=== PATIENT | male | born 1955 | race Hispanic/Latino ===

== ENCOUNTER 2018-11-02 11:42 | Observation (INO) | payer OTHER ==
[2018-11-02] MEDS ORDERED: D50W 25 GM/50 ML SYRINGE IV ONE ×2 (12:01→14:19)
--- NOTE | 2018-11-02 12:21 | RAD REPORT ---
EXAM DESCRIPTION: RAD - Chest Single View - 11/02/2018 12:09 pm CLINICAL HISTORY: Syncope, shortness of breath, dialysis patient COMPARISON: None. TECHNIQUE: AP portable chest image was obtained 1207 hours . FINDINGS: No pulmonary edema. No mass, infiltrate or acute lung parenchymal process. Failure and vol ume overload are not suspected. Heart size is upper normal. No acute vascular engorgement. Diaphragma tic eventration noted on the right. No measurable pleural effusion and no pneumothorax. No acute bony abnormality seen. No acute aortic findings suspected. IMPRESSION: No acute cardiopulmonary process.
[2018-11-02 12:22] LABS: Absolute Lymphocytes (CBC) 0.8 K/uL (0.7-4.9); Absolute Monocytes 0.6 K/uL (0.1-1.3); Absolute Neutrophil 6.6 K/uL (1.8-8.0); Basophils % 1.3 % (0-1.3); Eosinophils % 5.4 % (0-4.4); Hematocrit 37.3 % (39.6-49.0); Lymphocytes % 9.4 % (15.3-44.8); MPV 7.5 fL (7.6-11.3); Protime INR 0.98; RBC Red Blood Cell Count 4.08 M/uL (4.33-5.43)
[2018-11-02 12:51] LABS: ALT/SGPT 64 U/L (12-78); AST/SGOT 37 U/L (15-37); Albumin 4.2 g/dL (3.4-5.0); Alkaline Phosphatase 105 U/L (45-117); BUN Blood Urea Nitrogen 103 mg/dL (7-18); Bicarbonate 20 mmol/L (21-32); Bilirubin Direct 0.1 mg/dL (0-0.2); Bilirubin Total 0.5 mg/dL (0.2-1.0); Glucose Level 198 mg/dL (74-106); Magnesium 2.4 mg/dL (1.8-2.4); NT PRO-BNP 7551 pg/mL (<125); Protein, Total 7.9 g/dL (6.4-8.2); Sodium Level 133 mmol/L (136-145); Troponin (Emerg Dept Use Only) < 0.02 ng/mL (0.0-0.045)
[2018-11-02 12:58] LABS: Potassium 6.8 mmol/L (3.5-5.1)
[2018-11-02] MEDS ORDERED: ALBUTEROL 2.5 MG/3 ML NEB SOL ONE (14:10)
[2018-11-02] MEDS ORDERED: INSULIN -REGULAR HUMAN 50 UNIT/0.5 ML ML ONE (14:10)
[2018-11-02] MEDS ORDERED: SOD POLYSTYREN SUL 15 GM/60 ML UCUP ONE (14:11)
[2018-11-02] MEDS ORDERED: CALCIUM GLUCONATE 1gm/100 ML NS (4.65 mEq/100mL) IV ONE ×2 (14:15)
--- NOTE | 2018-11-02 16:45 | ER ---
Nurse's Notes [facility] Name: Surjit Cleary Age: 63 yrs Sex: Male : 1955 Arrival Date: 11/02/2018 Time: 11:44 Bed 7 Private MD: Diagnosis: Syncope and collapse;Hyperkalemia;Weakness Presentation: 11/02 11:44 Presenting complaint: EMS states: Family called because they thought he had a seizure, jl7 pt did not appear postictal upon arrival. Pt reports "I stood up and was weak and passed out." Pt is a dialysis pt, T/T/S, due for dialysis today at 1200. Transition of care: patient was not received from another setting of care. Onset of symptoms was November 02, 2018. Risk Assessment: Do you want to hurt yourself or someone else? Patient reports no desire to harm self or others. Initial Sepsis Screen: Does the patient meet any 2 criteria? No. Patient's initial sepsis screen is negative. Does the patient have a suspected source of infection? No. Patient's initial sepsis screen is negative. Care prior to arrival: Medication(s) given: Glucagon, IV initiated. 20 GA, in the left antecubital area, Glucose check: 50. 11:44 Method Of Arrival: EMS: [facility] 11:44 Acuity: CHRIS 3 jl7 Triage Assessment: 11:45 General: Appears in no apparent distress. uncomfortable, Behavior is calm, cooperative, jl7 appropriate for age. Pain: Denies pain. EENT: No signs and/or symptoms were reported regarding the EENT system. Neuro: Level of Consciousness is awake, alert, obeys commands, Oriented to person, place, time, situation, Reports "I got weak and passed out." Denies current weakness. Cardiovascular: Denies chest pain, Heart tones S1 S2 present Patient's skin is warm and dry. Rhythm is sinus bradycardia. Respiratory: Airway is patent Respiratory effort is even, unlabored, Respiratory pattern is regular, symmetrical, Breath sounds are clear bilaterally. Denies shortness of breath. GI: No signs and/or symptoms were reported involving the gastrointestinal system. : No signs and/or symptoms were reported regarding the genitourinary system. Derm: Skin is pink, warm \\T\\ dry. Musculoskeletal: No signs and/or symptoms reported regarding the musculoskeletal system. Historical: - Allergies: 12:30 No Known Allergies; jl7 - Home Meds: 12:30 Nephlex [Active]; Tylenol #3 Oral [Active]; Vitamin D Oral [Active]; levetiracetam 500 jl7 mg oral tab [Active]; Humalog 100 unit/mL Sub-Q crtg [Active]; Levemir 100 unit/mL subcutaneous soln [Active]; hydralazine 50 mg Oral tab [Active]; Diovan 160 mg Oral tab [Active]; gabapentin 100 mg oral cap [Active]; labetalol 200 mg Oral tab [Active]; pantoprazole 40 mg oral TbEC [Active]; amlodipine 10 mg tab [Active]; aspirin 81 mg Oral chew [Active]; atorvastatin 40 mg oral tab [Active]; - PMHx: 12:30 GERD; Hypertension; Dialysis; Hyperlipidemia; jl7 - Immunization history:: Adult Immunizations unknown. - Social history:: Smoking status: Patient/guardian denies using tobacco. - Ebola Screening: : No symptoms or risks identified at this time. Screenin:00 Abuse screen: Denies threats or abuse. Denies injuries from another. Nutritional jl7 screening: No deficits noted. Tuberculosis screening: No symptoms or risk factors identified. Fall Risk IV access (20 points). Total Bolanos Fall Scale indicates No Risk (0-24 pts). Assessment: 12:00 General: See triage assessment. jl7 13:00 Reassessment: Patient appears in no apparent distress at this time. Patient and/or jl7 family updated on plan of care and expected duration. Pain level reassessed. Patient is alert, oriented x 3, equal unlabored respirations, skin warm/dry/pink. 14:00 Reassessment: Patient appears in no apparent distress at this time. Patient and/or jl7 family updated on plan of care and expected duration. Pain level reassessed. Patient is alert, oriented x 3, equal unlabored respirations, skin warm/dry/pink. Patient denies pain at this time. Patient states feeling better. Patient states symptoms have improved. 15:00 Reassessment: Pt laying in bed with eyes closed, respirations even and unlabored, no jl7 signs of distress noted at this time. 16:00 Reassessment: Patient appears in no apparent distress at this time. Patient and/or jl7 family updated on plan of care and expected duration. Pain level reassessed. Patient is alert, oriented x 3, equal unlabored respirations, skin warm/dry/pink. Pt's family at bedside, pt denies pain. 17:00 Reassessment: Patient appears in no apparent distress at this time. Patient and/or jl7 family updated on plan of care and expected duration. Pain level reassessed. Patient is alert, oriented x 3, equal unlabored respirations, skin warm/dry/pink. Diet tray delivered. 18:00 Reassessment: Patient appears in no apparent distress at this time. No changes from jl7 previously documented assessment. Patient and/or family updated on plan of care and expected duration. Pain level reassessed. Patient is alert, oriented x 3, equal unlabored respirations, skin warm/dry/pink. Patient denies pain at this time. Vital Signs: 11:45 BP 130 / 76; Pulse 53; Resp 16; Pulse Ox 97% ; Weight 73.48 kg; Pain 0/10; jl7 13:52 BP 116 / 68; Pulse 57; Resp 16 S; Pulse Ox 97% on R/A; jl7 15:03 BP 95 / 49; Pulse 56; Resp 14 S; Pulse Ox 97% on R/A; jl7 15:14 BP 99 / 61; Pulse 63; Resp 14 S; Pulse Ox 99% on R/A; Pain 0/10; jl7 16:15 BP 107 / 62; Pulse 59; Resp 16 S; Pulse Ox 100% on R/A; jl7 17:15 BP 108 / 63; Pulse 62; Resp 16 S; Pulse Ox 97% on R/A; jl7 18:15 BP 106 / 63; Pulse 65; Resp 16 S; Pulse Ox 100% on R/A; jl7 ED Course: 11:44 Patient arrived in ED. jl7 11:46 Sb Willard MD is Attending Physician. kdr 11:47 Triage completed. jl7 11:49 EKG done, by technical account executive. reviewed by Sb Willard MD. sm3 11:55 Arm band placed on right wrist. jl7 12:00 Maintain EMS IV. Dressing intact. Good blood return noted. Site clean \\T\\ dry. Gauge \\T\\ jl 7 site: 20 left AC. 12:00 Patient has correct armband on for positive identification. Placed in gown. Bed in low jl7 position. Call light in reach. Side rails up X 1. engine monitor on. Pulse ox on. NIBP on. Warm blanket given. 12:07 X-ray completed. Portable x-ray completed in exam room. Patient tolerated procedure jb2 well. 12:08 XRAY Chest (1 view) In Process Unspecified. EDMS 12:21 Belle Carrero RN is Primary Nurse. jl7 16:44 Irwin Chadwick MD is Hospitalizing Provider. kdr 19:10 No provider procedures requiring assistance completed. Patient admitted, IV remains in jl7 place. intact, No redness/swelling at site. Administered Medications: 11:53 Drug: D50W 50 ml Route: IVP; Site: left antecubital; jl7 12:45 Follow up: Response: No adverse reaction; Blood sugar is elevated jl7 14:15 Drug: Albuterol 2.5 mg Route: Inhalation; jl7 14:17 Drug: D50W 50 ml Route: IVP; Site: left antecubital; jl7 15:00 Follow up: Response: No adverse reaction jl7 14:17 Drug: Kayexalate 45 grams Route: PO; jl7 15:00 Follow up: Response: No adverse reaction jl7 14:20 Drug: Insulin Regular Human 10 units {Co-Signature: aj1 (Ching Perkins RN).} Route: jl7 IVP; Site: left antecubital; 15:00 Follow up: Response: No adverse reaction; Blood sugar is lowered jl7 14:35 Drug: Albuterol 2.5 mg Route: Inhalation; jl7 14:55 Drug: Albuterol 2.5 mg Route: Inhalation; jl7 16:00 Follow up: Response: No adverse reaction jl7 15:05 Drug: Calcium Gluconate 1 grams Route: IVPB; Infused Over: 60 mins; Site: left jl7 antecubital; 16:05 Follow up: Response: No adverse reaction; IV Status: Completed infusion jl7 Point of Care Testing: Blood Glucose: 11:55 Blood Glucose: 44 mg/dL; jl7 15:03 Blood Glucose: 130 mg/dL; jl7 Ranges: Outcome: 16:45 Decision to Hospitalize by Provider. kdr 19:10 Admitted to accompanied by nurse, via wheelchair, with chart, Report called to jl7 Dialysis Nurse will transport pt to room 208 after dialysis is done 19:10 Condition: stable 19:10 Discharge instructions given to patient, Instructed on the need for admit, Demonstrated understanding of instructions. 19:12 Patient left the ED. cassy Signatures: Dispatcher [employer] EDMS Sb Willard MD MD kdr Buechter, Jesse jb2 Belle Carrero RN RN jl7 Nancy Shah 3 Ching Perkins RN aj1 Corrections: (The following items were deleted from the chart) 16:39 15:14 BP 99 / 61; Pulse 23bpm; Resp 14bpm; Spontaneous; Pulse Ox 99% RA; Pain 0/10; cassy madera
--- NOTE | 2018-11-02 16:45 | EDPHYS ---
Physician Documentation [facility] Name: Surjit Cleary Age: 63 yrs Sex: Male : 1955 Arrival Date: 11/02/2018 Time: 11:44 Bed 7 Private MD: ED Physician Sb Willard HPI: 11/02 16:39 This 63 yrs old Male presents to ER via EMS with complaints of Syncope. kdr 16:39 The patient has experienced near-syncope, almost passed out, felt faint, felt generally kdr weak. Onset: The symptoms/episode began/occurred just prior to arrival. Duration: This was a single episode, that lasted an unknown period of time. Context: the episode(s) was witnessed, by family, occurred at home, occurred while the patient was standing, Just prior to the episode the patient experienced weakness. Associated injury: The patient did not suffer any apparent associated injury. Associated signs and symptoms: Pertinent positives: weakness. Current symptoms: slightly weak. The patient has experienced similar episodes in the past, multiple times, with the last episode occurring last month, Has had four prior episodes. The patient has not recently seen a physician. Historical: - Allergies: 12:30 No Known Allergies; jl7 - Home Meds: 12:30 Nephlex [Active]; Tylenol #3 Oral [Active]; Vitamin D Oral [Active]; levetiracetam 500 jl7 mg oral tab [Active]; Humalog 100 unit/mL Sub-Q crtg [Active]; Levemir 100 unit/mL subcutaneous soln [Active]; hydralazine 50 mg Oral tab [Active]; Diovan 160 mg Oral tab [Active]; gabapentin 100 mg oral cap [Active]; labetalol 200 mg Oral tab [Active]; pantoprazole 40 mg oral TbEC [Active]; amlodipine 10 mg tab [Active]; aspirin 81 mg Oral chew [Active]; atorvastatin 40 mg oral tab [Active]; - PMHx: 12:30 GERD; Hypertension; Dialysis; Hyperlipidemia; jl7 - Immunization history:: Adult Immunizations unknown. - Social history:: Smoking status: Patient/guardian denies using tobacco. - Ebola Screening: : No symptoms or risks identified at this time. ROS: 16:39 Constitutional: Negative for fever, chills, and weight loss, Eyes: Negative for injury, kdr pain, redness, and discharge, ENT: Negative for injury, pain, and discharge, Neck: Negative for injury, pain, and swelling, Cardiovascular: Negative for chest pain, palpitations, and edema, Respiratory: Negative for shortness of breath, cough, wheezing, and pleuritic chest pain, Abdomen/GI: Negative for abdominal pain, nausea, vomiting, diarrhea, and constipation, Back: Negative for injury and pain, : Negative for injury, bleeding, discharge, and swelling, MS/Extremity: Negative for injury and deformity, Skin: Negative for injury, rash, and discoloration, Psych: Negative for depression, anxiety, suicide ideation, homicidal ideation, and hallucinations, Allergy/Immunology: Negative for hives, rash, and allergies, Endocrine: Negative for neck swelling, polydipsia, polyuria, polyphagia, and marked weight changes, Hematologic/Lymphatic: Negative for swollen nodes, abnormal bleeding, and unusual bruising. 16:39 Neuro: Positive for headache, loss of consciousness, near syncope, slight, Negative for altered mental status, numbness, seizure activity, tingling, tremor, visual changes. Exam: 12:32 ECG was reviewed by the Attending Physician. kdr 16:39 Constitutional: This is a well developed, well nourished patient who is awake, alert, kdr and in no acute distress. Head/Face: Normocephalic, atraumatic. ENT: Nares patent. No nasal discharge, no septal abnormalities noted. Tympanic membranes are normal and external auditory canals are clear. Oropharynx with no redness, swelling, or masses, exudates, or evidence of obstruction, uvula midline. Mucous membranes moist. Neck: Trachea midline, no thyromegaly or masses palpated, and no cervical lymphadenopathy. Supple, full range of motion without nuchal rigidity, or vertebral point tenderness. No Meningismus. Chest/axilla: Normal chest wall appearance and motion. Nontender with no deformity. No lesions are appreciated. Cardiovascular: Regular rate and rhythm with a normal S1 and S2. No gallops, murmurs, or rubs. Normal PMI, no JVD. No pulse deficits. Respiratory: Lungs have equal breath sounds bilaterally, clear to auscultation and percussion. No rales, rhonchi or wheezes noted. No increased work of breathing, no retractions or nasal flaring. Abdomen/GI: Soft, non-tender, with normal bowel sounds. No distension or tympany. No guarding or rebound. No evidence of tenderness throughout. Back: No spinal tenderness. No costovertebral tenderness. Full range of motion. Skin: Warm, dry with normal turgor. Normal color with no rashes, no lesions, and no evidence of cellulitis. MS/ Extremity: Pulses equal, no cyanosis. Neurovascular intact. Full, normal range of motion. Neuro: Awake and alert, GCS 15, oriented to person, place, time, and situation. Cranial nerves II-XII grossly intact. Motor strength 5/5 in all extremities. Sensory grossly intact. Cerebellar exam normal. Normal gait. Psych: Awake, alert, with orientation to person, place and time. Behavior, mood, and affect are within normal limits. Vital Signs: 11:45 BP 130 / 76; Pulse 53; Resp 16; Pulse Ox 97% ; Weight 73.48 kg; Pain 0/10; jl7 13:52 BP 116 / 68; Pulse 57; Resp 16 S; Pulse Ox 97% on R/A; jl7 15:03 BP 95 / 49; Pulse 56; Resp 14 S; Pulse Ox 97% on R/A; jl7 15:14 BP 99 / 61; Pulse 63; Resp 14 S; Pulse Ox 99% on R/A; Pain 0/10; jl7 16:15 BP 107 / 62; Pulse 59; Resp 16 S; Pulse Ox 100% on R/A; jl7 17:15 BP 108 / 63; Pulse 62; Resp 16 S; Pulse Ox 97% on R/A; jl7 18:15 BP 106 / 63; Pulse 65; Resp 16 S; Pulse Ox 100% on R/A; jl7 MDM: 16:39 Data reviewed: vital signs, nurses notes, lab test result(s), radiologic studies. kdr Counseling: I had a detailed discussion with the patient and/or guardian regarding: the historical points, exam findings, and any diagnostic results supporting the discharge/admit diagnosis, lab results, radiology results, the need for further work-up and treatment in the hospital. 16:45 Patient medically screened. kdr 11/02 11:47 Order name: Basic Metabolic Panel; Complete Time: 13:13 kdr 11/02 11:47 Order name: CBC with Diff; Complete Time: 13:13 kdr 11/02 11:47 Order name: LFT's; Complete Time: 13:13 kdr 11/02 11:47 Order name: Magnesium; Complete Time: 13:13 kdr 11/02 11:47 Order name: NT PRO-BNP; Complete Time: 13:13 kdr 11/02 11:47 Order name: PT-INR; Complete Time: 13:13 kdr 11/02 11:47 Order name: Troponin (emerg Dept Use Only); Complete Time: 13:13 kdr 11/02 11:47 Order name: XRAY Chest (1 view); Complete Time: 13:13 kdr 11/02 13:59 Order name: Glucose, Ancillary Testing; Complete Time: 16:35 EDMS 11/02 13:59 Order name: Glucose, Ancillary Testing; Complete Time: 16:35 EDMS 11/02 15:05 Order name: Glucose, Ancillary Testing; Complete Time: 16:35 EDMS 11/02 11:47 Order name: EKG; Complete Time: 11:48 kdr 11/02 11:47 Order name: Cardiac monitoring; Complete Time: 12:39 kdr 11/02 11:47 Order name: EKG - Nurse/Tech; Complete Time: 12:39 kdr 11/02 11:47 Order name: IV Saline Lock; Complete Time: 12:39 kdr 11/02 11:47 Order name: Labs collected and sent; Complete Time: 11:53 kdr 11/02 11:47 Order name: O2 Per Protocol; Complete Time: 12:39 kdr 11/02 11:47 Order name: O2 Sat Monitoring; Complete Time: 12:39 [facility] 11/02 11:52 Order name: Diet Regular; Complete Time: 11:53 [facility] EC:32 Rate is 56 beats/min. Rhythm is regular. QRS [place] is Normal. MT interval is normal. QRS kdr interval is normal. QT interval is normal. No Q waves. Clinical impression: Sinus bradycardia. Administered Medications: 11:53 Drug: D50W 50 ml Route: IVP; Site: left antecubital; jl7 12:45 Follow up: Response: No adverse reaction; Blood sugar is elevated jl7 14:15 Drug: Albuterol 2.5 mg Route: Inhalation; jl7 14:17 Drug: D50W 50 ml Route: IVP; Site: left antecubital; jl7 15:00 Follow up: Response: No adverse reaction jl7 14:17 Drug: Kayexalate 45 grams Route: PO; jl7 15:00 Follow up: Response: No adverse reaction jl7 14:20 Drug: Insulin Regular Human 10 units {Co-Signature: aj1 (Ching Perkins RN).} Route: jl7 IVP; Site: left antecubital; 15:00 Follow up: Response: No adverse reaction; Blood sugar is lowered jl7 14:35 Drug: Albuterol 2.5 mg Route: Inhalation; jl7 14:55 Drug: Albuterol 2.5 mg Route: Inhalation; jl7 16:00 Follow up: Response: No adverse reaction jl7 15:05 Drug: Calcium Gluconate 1 grams Route: IVPB; Infused Over: 60 mins; Site: left [facility] antecubital; 16:05 Follow up: Response: No adverse reaction; IV Status: Completed infusion jl7 Point of Care Testing: Blood Glucose: 11:55 Blood Glucose: 44 mg/dL; jl7 15:03 Blood Glucose: 130 mg/dL; jl7 Ranges: Critical Glucose Levels:Adult <50 mg/dl or >400 mg/dl <40 mg/dl or >180 mg/dl Disposition: 11/02/18 16:45 Hospitalization ordered by Irwin Chadwick for Inpatient Admission. Preliminary diagnosis are Syncope and collapse, Hyperkalemia, Weakness. - Bed requested for Telemetry/MedSurg (Inpatient). - Status is Inpatient Admission. [facility] - Condition is Fair. - Problem is new. - Symptoms have improved. UTI on Admission? No Signatures: Dispatcher [employer] EDME Sb Willard MD MD kdr Leal, Jahala RN RN jl7 Monica Beckford RN aj1 Corrections: (The following items were deleted from the chart) 18:26 16:45 Hospitalization Ordered by Irwin Chadwick MD for Inpatient Admission. Preliminary eb diagnosis is Syncope and collapse; Hyperkalemia; Weakness. Bed requested for Telemetry/MedSurg (Inpatient). Status is Inpatient Admission. Condition is Fair. Problem is new. Symptoms have improved. UTI on Admission? No. kdr 19:12 18:26 11/02/2018 16:45 Hospitalization Ordered by Irwin Chadwick MD for Inpatient jl7 Admission. Preliminary diagnosis is Syncope and collapse; Hyperkalemia; Weakness. Bed requested for Telemetry/MedSurg (Inpatient). Status is Inpatient Admission. Condition is Fair. Problem is new. Symptoms have improved. UTI on Admission? No. eb
--- NOTE | 2018-11-02 17:32 | P.HP ---
Certification for Inpatient Patient admitted to: Inpatient With expected LOS: >2 Midnights Practitioner: I am a practitioner with admitting privileges, knowledge of patient current condition, hospital course, and medical plan of care. Services: Services provided to patient in accordance with Admission requirements found in Title 42 Section 412.3 of the Code of Federal Regulations Patient History Date of Service: 11/02/18 Primary Care Provider: None (Just moved from [place]) Reason for admission: Syncopal episode History of Present Illness: 63 yr old male with PMH of HTN, DM2, HLD, ESRD on HD, and seizure causing right eye blindness admitted for syncopal episode. Per patient, he was going to go his dialysis appointment today but when he tried to get up from the chair, he felt very weak and felt dizzy. He felt like his legs were going to give out. He states for the past 2 weeks, almost every time he tries to stand up from sitting he has been feeling dizzy, weak and feels like his legs are going to give out. States that his vision goes dark. He states that he has fallen 3-4 times in the past 2 weeks. He fell today, but only to his knees. He did not injure his head. He denies any cp, sob, fevers, chills, or GI complaints. In the ED, he was given calcium gluconate, albuterol, dextrose, insulin and kayexelate. His labs were remarkable for cr of 8.75, sodium of 133 and potassium of 6.8, BNP of 7551. His chest x-ray was negative for any acute abnormalities. At the time of my exam, he was AAOx3, in no acute distress and states his symptoms had resolved. He was hemodynamically stable Allergies No Known Allergies Allergy (Unverified 11/02/18 14:03) - Past Medical/Surgical History Diabetic: Yes -: GERD -: HTN -: HLD -: DM2 -: Seizure -: Right eye blindness Review of Systems 10-point ROS is otherwise unremarkable Physical Examination - Physical Exam General: Alert, In no apparent distress, Oriented x3 HEENT: Atraumatic, PERRLA, Mucous membr. moist/pink, EOMI, Sclerae nonicteric Neck: Supple, 2+ carotid pulse no bruit, No LAD, Without JVD or thyroid abnormality Respiratory: Clear to auscultation bilaterally, Normal air movement Cardiovascular: Regular rate/rhythm, Normal S1 S2 Gastrointestinal: Normal bowel sounds, No tenderness Musculoskeletal: No tenderness Integumentary: No rashes Neurological: Normal gait, Normal speech, Normal strength at 5/5 x4 extr, Normal tone, Normal affect - Studies Laboratory Data (last 24 hrs) 11/02/18 12:00: PT 11.6, INR 0.98 11/02/18 12:00: WBC 8.6, Hgb 12.7 L, Hct 37.3 L, Plt Count 260 11/02/18 12:00: Sodium 133 L, Potassium 6.8 H*, BUN 103 H, Creatinine 8.75 H*, Glucose 198 H, Magnesium 2.4, Total Bilirubin 0.5, AST 37, ALT 64, Alkaline Phosphatase 105 Assessment and Plan - Problems (Diagnosis) (1) Syncopal episodes Current Visit: Yes Status: Acute Qualifiers: Syncope type: unspecified Qualified Code(s): R55 - Syncope and collapse (2) Generalized weakness Current Visit: Yes Status: Acute (3) Hyponatremia Current Visit: Yes Status: Acute (4) Hyperkalemia Current Visit: Yes Status: Acute (5) ESRD (end stage renal disease) on dialysis Current Visit: Yes Status: Chronic (6) HTN (hypertension) Current Visit: Yes Status: Chronic Qualifiers: Hypertension type: essential hypertension Qualified Code(s): I10 - Essential (primary) hypertension (7) HLD (hyperlipidemia) Current Visit: Yes Status: Chronic Qualifiers: Hyperlipidemia type: unspecified Qualified Code(s): E78.5 - Hyperlipidemia , unspecified (8) Diabetes mellitus Current Visit: Yes Status: Chronic Qualifiers: Diabetes mellitus type: type 2 Diabetes mellitus buttermaker insulin use: unspecified buttermaker insulin use status Diabetes mellitus complication status : without complication Qualified Code(s): E11.9 - Type 2 diabetes mellitus without complications (9) Seizure Current Visit: No Status: Chronic (10) Blind right eye Current Visit: No Status: Chronic - Plan Patient Problems: Syncopal episodes (Acute) R55c Will admit to floor, monitor via tele Unsure of etiology Will get orthostatics Monitor vital signs, A.M. Labs Generalized weakness (Acute) R53.1 Will get PT evaluation ESRD (end stage renal disease) on dialysis (Chronic) N18.6, Z99.2 Hyperkalemia (Acute) E87.5 Hyponatremia (Acute) E87.1 Patient is a on HD, T, Th, Sat at [facility] dialysis. Will get nephrology consult Last dialysis was on 10/31/2018 (missed today due to feeling dizzy and coming to ER) Diabetes mellitus (Chronic) E11.9 Accucheck and mild sliding scale insulin Will adjust as needed HLD (hyperlipidemia) (Chronic) E78.5 Will restart home medication once reconciled HTN (hypertension) (Chronic) I10 Stable at this time. Will restart home medication once reconciled Blind right eye (Chronic) H54.40 Seizure (Chronic) R56.9 Will restart home medication once reconciled; pt not sure what medications he is on at this time. DVT prophylaxis: Lovenox GI Prophylaxis: Protonix (Hx of GERD) Diet: Renal Disposition: Admit to the floor with tele. pending workup - Advance Directives Does patient have a Living Will: No Does patient have a Durable POA for Healthcare: No
[2018-11-02] MEDS ORDERED: D50W 25 GM/50 ML SYRINGE IV PRN (19:58)
[2018-11-02] MEDS ORDERED: GLUCAGON 1 MG/VIAL IM PRN (19:58)
[2018-11-02] MEDS: INSULIN -REGULAR HUMAN 50 UNIT/0.5 ML ML IV SCH (22:50)
--- NOTE | 2018-11-03 06:17 | EKG ---
Test Date: 2018-11-02 Test Time: 11:40:47 Hospitality Recruiter: ALISHA MEASUREMENT RESULTS: Intervals: Rate: 56 AR: 242 QRSD: 88 QT: 500 QTc: 482 [place]: P: 10 AR: 242 QRS: -18 T: 42 INTERPRETIVE STATEMENTS: Sinus bradycardia with 1st degree AV block Prolonged QT Abnormal ECG No previous ECG available for comparison Electronically Signed On 11-03-18 06:16:21 CDT by Obie Powers
[2018-11-03 06:57] LABS: Absolute Lymphocytes (CBC) 0.8 K/uL (0.7-4.9); Absolute Monocytes 0.6 K/uL (0.1-1.3); Absolute Neutrophil 4.5 K/uL (1.8-8.0); Basophils % 1.3 % (0-1.3); Eosinophils % 5.6 % (0-4.4); Hematocrit 36.6 % (39.6-49.0); Lymphocytes % 13.1 % (15.3-44.8); MPV 7.6 fL (7.6-11.3); Monocytes % 10.1 % (3.3-12.3); RBC Red Blood Cell Count 4.03 M/uL (4.33-5.43)
[2018-11-03 07:15] LABS: Potassium 4.4 mmol/L (3.5-5.1)
[2018-11-03 07:16] LABS: Bilirubin Total 0.5 mg/dL (0.2-1.0); Protein, Total 7.6 g/dL (6.4-8.2)
[2018-11-03] MEDS: INSULIN -REGULAR HUMAN 50 UNIT/0.5 ML ML IV SCH ×4 (07:30→21:00)
--- NOTE | 2018-11-03 10:43 | P.PN ---
Subjective Date of Service: 11/03/18 Primary Care Provider: None (Just moved from [place]) Chief Complaint: Syncopal episode Subjective: Improving Patient seen and examined at bedside. No family at bedside. Chart reviewed and case discussed with nursing staff. Patient admitted for syncopal episode. Patient denies any further episodes since being in the hospital. He reports that he has been going to the bathroom without any such episodes of dizziness. He did receive dialysis session yesterday. Review of Systems 10-point ROS is otherwise unremarkable Physical Examination - Vital Signs Temperature: 97.8 F Blood Pressure: 167/80 Pulse: 86 Respirations: 16 Pulse Ox (%): 98 - Physical Exam General: Alert, In no apparent distress, Oriented x3 HEENT: Atraumatic, PERRLA, EOMI Neck: Supple, JVD not distended Respiratory: Clear to auscultation bilaterally, Normal air movement Cardiovascular: Regular rate/rhythm, Normal S1 S2 Gastrointestinal: Normal bowel sounds, No tenderness Musculoskeletal: No tenderness Integumentary: No rashes Neurological: Normal gait, Normal speech, Normal tone, Normal affect - Studies Laboratory Data (last 24 hrs) 11/02/18 12:00: PT 11.6, INR 0.98 11/02/18 12:00: WBC 8.6, Hgb 12.7 L, Hct 37.3 L, Plt Count 260 11/02/18 12:00: Sodium 133 L, Potassium 6.8 H*, BUN 103 H, Creatinine 8.75 H*, Glucose 198 H, Magnesium 2.4, Total Bilirubin 0.5, AST 37, ALT 64, Alkaline Phosphatase 105 Assessment And Plan - Current Problems (Diagnosis) (1) Syncopal episodes Current Visit: Yes Status: Acute Qualifiers: Syncope type: unspecified Qualified Code(s): R55 - Syncope and collapse (2) Generalized weakness Current Visit: Yes Status: Acute (3) Hyponatremia Current Visit: Yes Status: Acute (4) Hyperkalemia Current Visit: Yes Status: Acute (5) ESRD (end stage renal disease) on dialysis Current Visit: Yes Status: Chronic (6) HTN (hypertension) Current Visit: Yes Status: Chronic Qualifiers: Hypertension type: essential hypertension Qualified Code(s): I10 - Essential (primary) hypertension (7) HLD (hyperlipidemia) Current Visit: Yes Status: Chronic Qualifiers: Hyperlipidemia type: unspecified Qualified Code(s): E78.5 - Hyperlipidemia , unspecified (8) Diabetes mellitus Current Visit: Yes Status: Chronic Qualifiers: Diabetes mellitus type: type 2 Diabetes mellitus medical terminologist insulin use: unspecified medical terminologist insulin use status Diabetes mellitus complication status : without complication Qualified Code(s): E11.9 - Type 2 diabetes mellitus without complications (9) Seizure Current Visit: No Status: Chronic (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 Continue to monitor vital Sign Positive orthostatics Patient does have multiple risk factors including diarrhea usage, dialysis, electrolyte imbalances. Will evaluate with an echo for cardiac abnormalities Continue to monitor Patient unsure of his home medications. We will have to analyze/adjust medications to see if this is the cause of syncope/presyncope Generalized weakness (Acute) R53.1 PT evaluation pending ESRD (end stage renal disease) on dialysis (Chronic) N18.6, Z99.2 Hyperkalemia (Acute) E87.5 Hyponatremia (Acute) E87.1 Patient is a on HD, T, Th, Sat at [facility] dialysis. Will get nephrology consult, recommendations appreciated Patient status post dialysis session on 11/02/2018 Diabetes mellitus (Chronic) E11.9 Accucheck and mild sliding scale insulin Will adjust as needed HLD (hyperlipidemia) (Chronic) E78.5 Will restart home medication once reconciled HTN (hypertension) (Chronic) I10 Stable at this time. Will restart home medication once reconciled Blind right eye (Chronic) H54.40 Seizure (Chronic) R56.9 Will restart home medication once reconciled; pt not sure what medications he is on at this time. DVT prophylaxis: Lovenox GI Prophylaxis: Protonix (Hx of GERD) Diet: Renal Disposition: Pending symptomatic improvement and physical therapy evaluation. Will also need to possibly adjust medications/diuretics once son brings pill bottles from home. Possible discharge in the next 24-48 hr Discharge Plan: Home Plan to discharge in: 24 Hours Time Spent Managing PTS Care (In Minutes): 35
--- NOTE | 2018-11-03 12:39 | ECHO ---
HEIGHT: 5 ft 7 in WEIGHT: 162 lb 0 oz DATE OF STUDY: 11/03/[address]: Irwin Chadwick MD 2-DIMENSIONAL: YES M.MODE: YES DOPPLER: YES COLOR FLOW: YES TDS: NO PORTABLE: NO DEFINITY: NO BUBBLE STUDY: NO DIAGNOSIS: SYNCOPE CARDIAC HISTORY: CATHERIZATION: NO SURGERY: NO PROSTHETIC VALVE: NO PACEMAKER: NO MEASUREMENTS (cm) DIASTOLIC (NORMALS) SYSTOLIC (NORMALS) IVSd 1.3 (0.6-1.2) LA Diam 4.0 (1.9-4.0) LVEF 69% LVIDd 5.4 (3.5-5.7) LVIDs 3.3 (2.0-3.5) %FS 39% LVPWd 1.3 (0.6-1.2) Ao Diam 3.2 (2.0-3.7) 2 DIMENSIONAL ASSESSMENT: RIGHT ATRIUM: NORMAL LEFT ATRIUM: MILDLY DILATED RIGHT VENTRICLE: NORMAL LEFT VENTRICLE: NORMAL TRICUSPID VALVE: NORMAL MITRAL VALVE: NORMAL PULMONIC VALVE: NORMAL AORTIC VALVE: NORMAL PERICARDIAL EFFUSION: NONE AORTIC ROOT: NORMAL LEFT VENTRICULAR WALL MOTION: NORMAL. DOPPLER/COLOR FLOW: TRACE OF MITRAL REGURGITATION. IMPAIRED LEFT VENTRICULAR RELAXATION. COMMENTS: NORMAL LEFT VENTRICULAR EJECTION FRACTION. MILDLY DILATED LEFT ATRIUM. TRACE OF MITRAL REGURGITATION. IMPAIRED LEFT VENTRICULAR RELAXATION. TECHNOLOGIST: RUTHANN ODONNELL
[2018-11-03] MEDS ORDERED: CALCIUM GLUC 10% INJ 4.65 MEQ in NA CHLORIDE 0.9% 100 ML IV ONE (13:25)
[2018-11-03] MEDS ORDERED: AMLODIPINE 5 MG TAB PO ONE (14:00)
[2018-11-04 06:33] LABS: Albumin 4.3 g/dL (3.4-5.0); Bilirubin Total 0.5 mg/dL (0.2-1.0); Protein, Total 8.1 g/dL (6.4-8.2)
[2018-11-04 06:43] LABS: Absolute Lymphocytes (CBC) 1.1 K/uL (0.7-4.9); Absolute Monocytes 0.6 K/uL (0.1-1.3); Absolute Neutrophil 5.5 K/uL (1.8-8.0); Basophils % 1.3 % (0-1.3); Eosinophils % 5.9 % (0-4.4); Hematocrit 40.3 % (39.6-49.0); Lymphocytes % 13.8 % (15.3-44.8); MPV 7.9 fL (7.6-11.3); Monocytes % 7.2 % (3.3-12.3); RBC Red Blood Cell Count 4.37 M/uL (4.33-5.43)
[2018-11-04] MEDS ORDERED: SOD POLYSTYREN SUL 15 GM/60 ML UCUP PO ONE (06:57)
[2018-11-04] MEDS ORDERED: D50W 25 GM/50 ML SYRINGE IV PRN (06:57)
[2018-11-04] MEDS ORDERED: CALCIUM GLUC 10% INJ 4.65 MEQ in NA CHLORIDE 0.9% 100 ML IV ONE (06:57)
[2018-11-04] MEDS ORDERED: D50W 25 GM/50 ML SYRINGE IV ONE (06:57)
[2018-11-04] MEDS ORDERED: GLUCAGON 1 MG/VIAL IM PRN (06:57)
[2018-11-04] MEDS ORDERED: INSULIN -REGULAR HUMAN 50 UNIT/0.5 ML ML IV ONE (06:58)
[2018-11-04] MEDS: INSULIN -REGULAR HUMAN 50 UNIT/0.5 ML ML IV SCH ×4 (07:30→20:43)
[2018-11-04] MEDS ORDERED: SODIUM BICARB 50 MEQ/50ML VIAL IV ONE (08:00)
[2018-11-04 08:04] LABS: Potassium 7.3 mmol/L (3.5-5.1)
[2018-11-04] MEDS ORDERED: ALBUTEROL 2.5 MG/3 ML NEB SOL NEB ONE ×2 (11:14)
--- NOTE | 2018-11-04 12:51 | P.PN ---
Subjective Date of Service: 11/04/18 Primary Care Provider: None (Just moved from [place]) Chief Complaint: Syncopal episode Subjective: Improving Patient seen and examined at bedside. No family at bedside. Chart reviewed and case discussed with nursing staff. Patient admitted for syncopal episode. Patient denies any further episodes since being in the hospital. He reports that he has been going to the bathroom without any such episodes of dizziness. Review of Systems 10-point ROS is otherwise unremarkable Physical Examination - Vital Signs Temperature: 97.1 F Blood Pressure: 174/99 Pulse: 64 Respirations: 18 Pulse Ox (%): 95 - Physical Exam General: Alert, In no apparent distress, Oriented x3 HEENT: Atraumatic, PERRLA, EOMI Neck: Supple, JVD not distended Respiratory: Clear to auscultation bilaterally, Normal air movement Cardiovascular: Regular rate/rhythm, Normal S1 S2 Gastrointestinal: Normal bowel sounds, No tenderness Musculoskeletal: No tenderness Integumentary: No rashes Neurological: Normal speech, Normal tone, Normal affect Lymphatics: No axilla or inguinal lymphadenopathy Assessment And Plan - Current Problems (Diagnosis) (1) Syncopal episodes Current Visit: Yes Status: Acute Qualifiers: Syncope type: unspecified Qualified Code(s): R55 - Syncope and collapse (2) Generalized weakness Current Visit: Yes Status: Acute (3) Hyponatremia Current Visit: Yes Status: Acute (4) Hyperkalemia Current Visit: Yes Status: Acute (5) ESRD (end stage renal disease) on dialysis Current Visit: Yes Status: Chronic (6) HTN (hypertension) Current Visit: Yes Status: Chronic Qualifiers: Hypertension type: essential hypertension Qualified Code(s): I10 - Essential (primary) hypertension (7) HLD (hyperlipidemia) Current Visit: Yes Status: Chronic Qualifiers: Hyperlipidemia type: unspecified Qualified Code(s): E78.5 - Hyperlipidemia , unspecified (8) Diabetes mellitus Current Visit: Yes Status: Chronic Qualifiers: Diabetes mellitus type: type 2 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 Continue to monitor vital Sign Positive orthostatics Patient does have multiple risk factors including diarrhea usage, dialysis, electrolyte imbalances. Will evaluate with an echo for cardiac abnormalities Continue to monitor Patient unsure of his home medications. We will have to analyze/adjust medications to see if this is the cause of syncope/presyncope Generalized weakness (Acute) R53.1 PT evaluation pending ESRD (end stage renal disease) on dialysis (Chronic) N18.6, Z99.2 Hyperkalemia (Acute) E87.5 Hyponatremia (Acute) E87.1 Patient is a on HD, T, Th, Sat at [facility] dialysis. Will get nephrology consult, recommendations appreciated Patient status post dialysis session on 11/02/2018 Patient again hypoproteinemic this morning. Will get dialyzed today. Diabetes mellitus (Chronic) E11.9 Accucheck and mild sliding scale insulin Will adjust as needed HLD (hyperlipidemia) (Chronic) E78.5 Will restart home medication once reconciled HTN (hypertension) (Chronic) I10 Stable at this time. Will restart home medication once reconciled Blind right eye (Chronic) H54.40 Seizure (Chronic) R56.9 Will restart home medication once reconciled; pt not sure what medications he is on at this time. DVT prophylaxis: Lovenox GI Prophylaxis: Protonix (Hx of GERD) Diet: Renal Disposition: Pending dialysis today. Possible discharge in the next 24-48 hr
[2018-11-04 20:55] LABS: Potassium 4.2 mmol/L (3.5-5.1)
--- NOTE | 2018-11-05 03:01 | CON ---
Date of Consultation: 11/04/2018 Chief Complaint: End-stage renal disease, on dialysis, severe hyperkalemia. History Of Present Illness: The patient came to the hospital on November 02, was found to have severe h yperkalemia, potassium level was 6.8. The patient received treatment and potassium level has improve d to 4.4. Today, the patient was found to have severe hyperkalemia potassium level was 7.3. The pat ient was treated with albuterol nebulizers, IV dextrose with insulin, calcium gluconate, and [place] te, and emergent dialysis was ordered for treatment of hyperkalemia and fluid overload. The patient has had accelerated hypertension. He underwent echocardiogram for recent history of fall and history of hypertensive heart disease. Echocardiogram showed normal left ventricular ejection fraction, mil dly dilated left atrium, of mitral regurgitation, and impairment of left ventricular relax ation. The patient has congestive heart failure with diastolic dysfunction and fluid overload. The patient was scheduled to have emergent dialysis today to treat hyperkalemia. The patient is a 63-year-old man with history of hypertension, diabetes mellitus, end-stage renal dis ease due to diabetic kidney disease, history of seizure, history of blindness and syncope. The patie nt prior to this admission developed dizziness, weakness, and syncope. He apparently has vertigo and has problem with ambulation as well as vision changes. He states that he has fallen 3 to 4 times ov er last 2 weeks. He fell on day prior to this admission. He denied chest pain, shortness of breath, fever, chills. In the emergency room, he was treated for hyperkalemia. BNP was elevated up to 7551 . Review of Systems: Constitutional: Today, the patient denies fever, chills. Eyes: Denies new vision changes, although he had some blue red vision and worsening of the vision ov er the last 2 weeks. Cardiovascular: He had syncope prior to this admission, recent history of multiple falls, though he denied trauma. GI: Denies nausea, vomiting. : Denies dysuria, hematuria. Musculoskeletal: Denies muscle weakness. Denies gout. All other systems reviewed and all are negative. Past Medical History: Diabetes mellitus, right eye blindness, seizure, hypertension, anemia, CKD, re nal osteodystrophy, hyperlipidemia, hypertensive heart and kidney disease, diabetic kidney disease. Social History: Denies tobacco, alcohol, or illicit drugs. Family History: Diabetes and hypertension in family. Physical Examination: General: The patient is awake, alert, oriented x3. Eyes: Anicteric sclerae. EOMI. Ears, Nose, Mouth, and Throat: Oral mucosa moist. No pallor. Neck: Supple. No JVD. No bruits. Lungs: Crackles bilaterally at bases. Heart: S1, S2. No pericardial friction rub. Abdomen: Soft, obese, benign, nontender. No rebound, no guarding. Extremities: No clubbing, no cyanosis. Neurological: Moving extremities cranial nerves intact. Psychiatric: Alert, oriented x3. Normal affect. Laboratory Data: PT 11.6, INR 0.98. WBC 8.6, hemoglobin 12.7. Sodium 133, potassium 6.8 and 7.1, c reatinine 8.75, BUN 103, glucose 198, magnesium 2.4. Impression And Plan: 1.Syncopal episode. The patient is undergoing workup with Cardiology to rule out acute coronary syn drome. The patient may need to be evaluated by neurologist for seizure. 2.Generalized weakness, fluid overload. The patient has history of diastolic dysfunction. Continue p.o. fluid restriction. Dialysis will be ordered to treat severe hyperkalemia. Provide metabolic c learance. 3.The patient has severe azotemia and dialysis will be done today to treat fluid overload and provid e metabolic clearance. 4.Anemia. The patient does not have any evidence of bleeding. Hemoglobin level is 13.2. Continue to monitor. At this point, the patient does not require CT. 5.Renal osteodystrophy. Continue renal diet and binders. 6.Diabetes mellitus with renal manifestation. Continue insulin. Adjust insulin according to blood glucose. EB/MODL Voice ID: [id number] Report ID: [id number]
[2018-11-05 05:38] LABS: Absolute Lymphocytes (CBC) 0.6 K/uL (0.7-4.9); Absolute Monocytes 0.6 K/uL (0.1-1.3); Absolute Neutrophil 6.1 K/uL (1.8-8.0); Basophils % 1.3 % (0-1.3); Eosinophils % 4.5 % (0-4.4); Hematocrit 39.2 % (39.6-49.0); Lymphocytes % 7.4 % (15.3-44.8); MPV 7.9 fL (7.6-11.3); Monocytes % 7.5 % (3.3-12.3); RBC Red Blood Cell Count 4.29 M/uL (4.33-5.43)
[2018-11-05 05:44] LABS: Albumin 4.5 g/dL (3.4-5.0); Bilirubin Total 0.5 mg/dL (0.2-1.0); Potassium 4.9 mmol/L (3.5-5.1); Protein, Total 8.5 g/dL (6.4-8.2)
[2018-11-05] MEDS: INSULIN -REGULAR HUMAN 50 UNIT/0.5 ML ML IV SCH ×4 (09:00→20:24)
[2018-11-05] MEDS ORDERED: levETIRAcetam 500 MG TAB PO SCH ×2 (19:00)
--- NOTE | 2018-11-05 19:46 | P.PN ---
Subjective Date of Service: 11/05/18 Primary Care Provider: None (Just moved from [place]) Chief Complaint: Syncopal episode Patient seen and examined at bedside. No family at bedside. Chart reviewed and case discussed with nursing staff. Patient admitted for syncopal episode. Has an episode of dizziness while standing up. Hyperkalemia this morning, pending dialysis Review of Systems 10-point ROS is otherwise unremarkable Physical Examination - Vital Signs Temperature: 98.6 F Blood Pressure: 176/90 Pulse: 88 Respirations: 18 Pulse Ox (%): 95 - Physical Exam General: Alert, In no apparent distress HEENT: Atraumatic, PERRLA, EOMI Neck: Supple, JVD not distended Respiratory: Clear to auscultation bilaterally, Normal air movement Cardiovascular: Regular rate/rhythm, Normal S1 S2 Gastrointestinal: Normal bowel sounds, No tenderness Musculoskeletal: No tenderness Integumentary: No rashes Neurological: Normal speech, Normal tone, Normal affect Lymphatics: No axilla or inguinal lymphadenopathy Assessment And Plan - Current Problems (Diagnosis) (1) Syncopal episodes Current Visit: Yes Status: Acute Qualifiers: Syncope type: unspecified Qualified Code(s): R55 - Syncope and collapse (2) Generalized weakness Current Visit: Yes Status: Acute (3) Hyponatremia Current Visit: Yes Status: Acute (4) Hyperkalemia Current Visit: Yes Status: Acute (5) ESRD (end stage renal disease) on dialysis Current Visit: Yes Status: Chronic (6) HTN (hypertension) Current Visit: Yes Status: Chronic Qualifiers: Hypertension type: essential hypertension Qualified Code(s): I10 - Essential (primary) hypertension (7) HLD (hyperlipidemia) Current Visit: Yes Status: Chronic Qualifiers: Hyperlipidemia type: unspecified Qualified Code(s): E78.5 - Hyperlipidemia , unspecified (8) Diabetes mellitus Current Visit: Yes Status: Chronic Qualifiers: Diabetes mellitus type: type 2 Diabetes mellitus half-way insulin use: 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 Educated on being careful when standing/getting up. Continue to monitor vital Sign Positive orthostatics Patient does have multiple risk factors including diarrhea usage, dialysis, electrolyte imbalances. Will evaluate with an echo for cardiac abnormalities Continue to monitor Patient unsure of his home medications. We will have to analyze/adjust medications to see if this is the cause of syncope/presyncope Generalized weakness (Acute) R53.1 PT evaluation. Did well with physical therapy, reported no dizziness ESRD (end stage renal disease) on dialysis (Chronic) N18.6, Z99.2 Hyperkalemia (Acute) E87.5 Hyponatremia (Acute) E87.1 Patient is a on HD, T, Th, Sat at [facility] dialysis. Will get nephrology consult, recommendations appreciated Patient status post dialysis session on 11/03/2018 Diabetes mellitus (Chronic) E11.9 Accucheck and mild sliding scale insulin Will adjust as needed HLD (hyperlipidemia) (Chronic) E78.5 Continue home medications HTN (hypertension) (Chronic) I10 Stable at this time. Continue home medication Blind right eye (Chronic) H54.40 Seizure (Chronic) R56.9 Will restart home medication once reconciled; pt not sure what medications he is on at this time. DVT prophylaxis: Lovenox GI Prophylaxis: Protonix (Hx of GERD) Diet: Renal Disposition: Pending dialysis today. Possible discharge in the next 24-48 hr
[2018-11-05] MEDS: HYDRALAZINE HCL 25 MG TABLET PO SCH (20:23)
[2018-11-05] MEDS: VALSARTAN 80 MG TAB PO SCH (20:23)
[2018-11-05] MEDS: INSULIN GLARGINE 100 UNITS/ML SQ SCH (20:24)
[2018-11-05] MEDS: ATORVASTATIN 40 MG TAB PO SCH (20:24)
[2018-11-05] MEDS: LABETALOL HCL 100 MG TAB PO SCH (21:00)
--- NOTE | 2018-11-06 03:52 | PN ---
Date of Progress Note: 11/05/2018 Chief Complaint: Hyperkalemia, end-stage renal disease, uncontrolled hypertension, fluid overload. The patient underwent emergent dialysis yesterday to control potassium level. The potassium was up t o 7.2 and improved to 4.3. The patient is still on low-potassium diet. The patient is dialysis-dependent. Azotemia improved from 110s to 72. Review of Systems: Denies complaints. Physical Examination: Lungs: Clear to auscultation bilaterally. Heart: S1, S2. Abdomen: Soft, benign. Extremities: No edema. Impression And Plan: 1.Fluid overload. Continue low-sodium diet, p.o. fluid restriction. 2.Dialysis with ultrafiltration will be scheduled for tomorrow. 3.Hyperkalemia, controlled with dialysis. Monitor potassium level. Continue low-potassium diet. 4.Hypertension. Blood pressure accelerated. Adjust medication. EB/MODL Voice ID: [id number] Report ID: [id number]
[2018-11-06 06:51] LABS: Potassium 4.7 mmol/L (3.5-5.1)
[2018-11-06 06:56] VITALS: BMI 23.3
[2018-11-06] MEDS: INSULIN -REGULAR HUMAN 50 UNIT/0.5 ML ML IV SCH ×4 (07:30→21:00)
[2018-11-06] MEDS: INSULIN GLARGINE 100 UNITS/ML SQ SCH ×2 (07:58→21:00)
[2018-11-06] MEDS: HYDRALAZINE HCL 25 MG TABLET PO SCH ×3 (07:59→21:00)
[2018-11-06] MEDS: VALSARTAN 80 MG TAB PO SCH ×2 (07:59→21:00)
[2018-11-06] MEDS: LABETALOL HCL 100 MG TAB PO SCH ×2 (08:02→21:00)
--- NOTE | 2018-11-06 08:29 | CON ---
NEPHROLOGY CONSULT NOTE Reason For Admission: Syncopal episodes. Reason For Consult: Hyperkalemia, end-stage renal disease, and management. History Of Present Illness: This is a 63-year-old man with past medical history of end-stag e renal disease, on dialysis Tuesday, , Tuesday; history of seizure disorder; diabetes melli tus; and hypertension. The patient was admitted for feeling dizzy and weak after trying to stand up. No chest pain, palpitation, nausea, vomiting, or diarrhea. In the ER, blood sugar was less than __ repeated in chemistry after a few minutes show blood sugar close to 200. Also, had a potass ium of 6.8, BNP of 7500. The patient improved significantly while hospitalized. Review of Systems: As in HPI. Past Medical History: As in HPI. Past Surgical History: AV fistula. Allergies: NO KNOWN DRUG ALLERGIES. Family History: Noncontributory. Physical Examination: General: Awake, alert, oriented x3, not in distress. Chest: Clear to auscultation bilaterally. No rales or wheezes. Heart: Regular rate and rhythm. Normal S1, S2. Abdomen: Soft and nontender. Extremities: No edema. Laboratory Data: White count 6.4, hemoglobin 12.2, 36, platelet 203, sodium 135, potassiu m 4.4 6.8 on admission, calcium 7.6, and albumin of 4. Medications: See MAR. Assessment And Plan: 1.End-stage renal disease, went to hemodialysis Tuesday, Tuesday, Tuesday and will continue hemodial ysis on Tuesday, , Tuesday and medication. 2.Syncope, hypoglycemia history of seizure. Plan for a head CT today. 3.History of seizure disorder. Resume home medications. 4.Anemia. We will hold on Epogen as his hemoglobin is more than 11. 5.Diabetes mellitus. As per primary. AA/MODL Voice ID: [id number] Report ID: [id number]
[2018-11-06] MEDS ORDERED: PANTOPRAZOLE 40MG TABLET PO SCH (09:00)
[2018-11-06] MEDS ORDERED: GABAPENTIN 100 MG CAP PO SCH (09:00)
[2018-11-06] MEDS ORDERED: ASPIRIN 81 MG CHEWABLE TABLET PO SCH (09:00)
[2018-11-06 10:51] VITALS: O2SAT 97
--- NOTE | 2018-11-06 18:11 | P.SSS ---
Patient History Date of Service: 11/06/18 Primary Care Provider: None (Just moved from [place]) Reason for admission: Syncopal episode History of Present Illness: 63 yr old male with PMH of HTN, DM2, HLD, ESRD on HD, and seizure causing right eye blindness admitted for syncopal episode. Per patient, he was going to go his dialysis appointment today but when he tried to get up from the chair, he felt very weak and felt dizzy. He felt like his legs were going to give out. He states for the past 2 weeks, almost every time he tries to stand up from sitting he has been feeling dizzy, weak and feels like his legs are going to give out. States that his vision goes dark. He states that he has fallen 3-4 times in the past 2 weeks. He fell today, but only to his knees. He did not injure his head. He denies any cp, sob, fevers, chills, or GI complaints. In the ED, he was given calcium gluconate, albuterol, dextrose, insulin and kayexelate. His labs were remarkable for cr of 8.75, sodium of 133 and potassium of 6.8, BNP of 7551. His chest x-ray was negative for any acute abnormalities. At the time of my exam, he was AAOx3, in no acute distress and states his symptoms had resolved. He was hemodynamically stable Allergies No Known Allergies Allergy (Unverified 11/02/18 14:03) Home medications list reviewed: Yes Home Medications: Acetaminophen [Acetaminophen Extra Strength] 500 mg PO Q4HP PRN 11/04/18 Acetaminophen with Codeine [Tylenol with-Codeine #3 Tablet] 1 each PO Q6HR PRN 11/04/18 Amlodipine [Norvasc*] 10 mg PO DAILY 11/04/18 Aspirin Chewable [Aspirin Chewable*] 81 mg PO DAILY 11/04/18 Atorvastatin Calcium [Lipitor] 40 mg PO BEDTIME 11/04/18 B Complx/C/Folic/Zinc/Copper/E [Eql Stress B-Complex Tablet] 1 each PO DAILY Calcium Acetate [Phoslo*] 2 cap PO TIDWM 11/04/18 Ergocalciferol (Vitamin D2) [Vitamin D2] 50,000 unit PO DIRECTED 11/04/18 Gabapentin [Neurontin*] 100 mg PO DAILY 11/04/18 Insulin Detemir [Levemir] 7 units SQ BID 11/04/18 Labetalol HCl [Trandate] 400 mg PO BID 11/04/18 Levetiracetam [Keppra] 500 mg PO SEECOM 11/04/18 Levetiracetam [Keppra] 500 mg PO SEECOM 11/04/18 Pantoprazole [Protonix Tab*] 40 mg PO DAILY 11/04/18 Valsartan [Diovan*] 160 mg PO BID 11/04/18 Hydralazine [Apresoline*] 50 mg PO BID #60 tab 11/06/18 - Past Medical/Surgical History Has patient received pneumonia vaccine in the past: Yes Diabetic: Yes -: GERD -: HTN -: HLD -: DM2 -: Seizure -: Right eye blindness - Social History Smoking Status: Never smoker Alcohol use: No CD- Drugs: No Caffeine use: No Place of Residence: Home Review of Systems 10-point ROS is otherwise unremarkable Physical Examination - Vital Signs Temperature: 98.6 F Blood Pressure: 176/90 Pulse: 88 Respirations: 18 Pulse Ox (%): 95 - Physical Exam General: Alert, In no apparent distress, Oriented x3 HEENT: Atraumatic, PERRLA, Mucous membr. moist/pink, EOMI, Sclerae nonicteric Neck: Supple, 2+ carotid pulse no bruit, No LAD, Without JVD or thyroid abnormality Respiratory: Clear to auscultation bilaterally, Normal air movement Cardiovascular: Regular rate/rhythm, Normal S1 S2 Gastrointestinal: Normal bowel sounds, No tenderness Musculoskeletal: No tenderness Integumentary: No rashes Neurological: Normal gait, Normal speech, Normal strength at 5/5 x4 extr, Normal tone, Normal affect Lymphatics: No axilla or inguinal lymphadenopathy - Diagnosis (Problem(s)) (1) Syncopal episodes Current Visit: Yes Status: Acute Qualifiers: Syncope type: unspecified Qualified Code(s): R55 - Syncope and collapse (2) Generalized weakness Current Visit: Yes Status: Acute (3) Hyponatremia Current Visit: Yes Status: Acute (4) Hyperkalemia Current Visit: Yes Status: Acute (5) ESRD (end stage renal disease) on dialysis Current Visit: Yes Status: Chronic (6) HTN (hypertension) Current Visit: Yes Status: Chronic Qualifiers: Hypertension type: essential hypertension Qualified Code(s): I10 - Essential (primary) hypertension (7) HLD (hyperlipidemia) Current Visit: Yes Status: Chronic Qualifiers: Hyperlipidemia type: unspecified Qualified Code(s): E78.5 - Hyperlipidemia , unspecified (8) Diabetes mellitus Current Visit: Yes Status: Chronic Qualifiers: Diabetes mellitus type: type 2 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 He did report some dizziness when he would stand up sometimes. Orthostatics were positive. He was educated on being careful and slow with movements especially when getting up from a sitting or sleeping position. No tele events noted throughout this stay. An echocardiogram was done, which showed mild dilation of the left atrium, normal ejection fraction of 69%. Physical therapy was ordered, he did well with physical therapy. He reported no dizziness with walking once he had stood up. ESRD (end stage renal disease) on dialysis (Chronic) N18.6, Z99.2 Hyperkalemia (Acute) E87.5 Hyponatremia (Acute) E87.1 Patient is a on HD, T, Th, Sat at [facility] dialysis. Nephrology was consulted and he received dialysis per his schedule. He did have some hypokalemia and hyponatremia, for which he did receive his dialysis for. Diabetes mellitus (Chronic) E11.9 Remained stable. No medication changes made throughout the stay. HLD (hyperlipidemia) (Chronic) E78.5 Remained stable. No medication changes made throughout the stay. HTN (hypertension) (Chronic) I10 His hydralazine was decreased to twice a day dosing and he was discharged on this new dosage. No other medication changes made throughout this stay. Blind right eye (Chronic) H54.40 Seizure (Chronic) R56.9 No seizures this hospitalization. He remained stable throughout the stay, no medication changes made. Prior to discharge, he was alert oriented x3, in no acute distress and hemodynamically stable. He was asymptomatic. He was ambulating without any concerns, tolerating an oral diet. He will be following up with his primary care physician in 1 week. He does not have a primary care physician at this time as he just moved from [place]. He was provided with a list and he which used physician to follow up with. He was emphasized how important it is to have a follow up with primary care physician. He will also follow up with nephrology in 1 week. All questions were answered, patient verbalized understanding. He was discharged home in a stable manner. - Disposition Discharge Date: 11/06/18 Disposition: ROUTINE DISCHARGE Condition: GOOD Consultations: Nephrology Patient Discharge Instructions: Please follow up with your primary care physicain in 2-3 days. A list provided to you. Please follow up with nephrology in 1 week. Information provided to you. Please return to the Emergency room for worsening symptoms. Diet: Renal Activity: Ad al Time Spent Managing Pts Care (In Minutes): 55
[2018-11-06 20:45] VITALS: BP 158/81; TEMP 98.4
[2018-11-06] MEDS: ATORVASTATIN 40 MG TAB PO SCH (21:00)
--- NOTE | 2018-11-07 03:48 | PN ---
Date of Progress Note: 11/06/2018 The patient was admitted to the hospital because of generalized weakness, status post fall. He was f ound to have severe hyperkalemia. He was treated medically, subsequently dialysis was ordered for me tabolic clearance. Potassium level has improved. Review of Systems: The patient is complaining of some orthostatic hypotension. He denies syncope. Physical Examination: Lungs: Few crackles at bases. Heart: S1, S2. Abdomen: Soft, benign. Extremities: No edema. Laboratory Data: Chemistry showed sodium 138, potassium 4.7, chloride 100, CO2 of 22, BUN 113, creat inine 9.43, calcium 7.6, glucose 133, hemoglobin is 13.1, WBC 7.7, platelet count is and 224,000. Impression And Plan: 1.End-stage renal disease. The patient underwent dialysis today. 2.Hyperkalemia, resolved. The patient is tolerating dialysis and potassium level remains within nor mal limits. 3.Hypertension. Continue blood pressure medication. Hydralazine dose was reduced because of orthos tatic hypotension. 4.Anemia of chronic kidney disease. CT on hold. 5.Renal osteodystrophy. Continue renal diet and binders. EB/MODL Voice ID: [id number] Report ID: [id number]
== END 2018-11-06 21:46 | disposition home or self-care (01) ==
LOC: ER 11:42 → INTOOBSV 17:00 → ERHOLD 17:00 → 2ND 18:43
PROVIDERS: ADMIT Family Medicine; ATTEND Family Medicine
DX: R55 Syncope and collapse (principal); R53.1 Weakness; E87.5 Hyperkalemia; E87.1 Hypo-osmolality and hyponatremia; I12.0 Hypertensive chronic kidney disease with stage 5 chronic kidney disease or end stage renal disease; E11.22 Type 2 diabetes mellitus with diabetic chronic kidney disease; N18.6 End stage renal disease; K21.9 Gastro-esophageal reflux disease without esophagitis; R56.9 Unspecified convulsions; H54.61 Unqualified visual loss, right eye, normal vision left eye; E78.5 Hyperlipidemia, unspecified; Z99.2 Dependence on renal dialysis
CPT/HCPCS: 96365; 93005; 93306; 85025 ×4; 80048 ×4; 36415 ×4; 83735; 85610; 82962 ×19; 80076; 84484; 80053 ×3; 83880; 71045; 90935 ×3; 97116 ×2; 97163; 94640; 94760 ×8; 96375; 99285; J1610; J0610 ×3; G0378 ×2

== ENCOUNTER 2018-12-11 18:40 | Emergency (ER) | payer OTHER ==
[2018-12-11] MEDS ORDERED: cloNIDine HCl 0.1 MG TAB ONE (19:48)
[2018-12-11] MEDS ORDERED: MORPHINE 4 MG/ML SYR ONE (19:49)
[2018-12-11] MEDS ORDERED: LABETALOL 20 MG/4ML SYRINGE IV ONE (19:49)
[2018-12-11] MEDS ORDERED: ONDANSETRON 4 MG/2 ML VIAL ONE (19:49)
--- NOTE | 2018-12-11 19:57 | RAD REPORT ---
EXAM DESCRIPTION: CT - Head Brain Wo Cont - 12/11/2018 7:46 pm CLINICAL HISTORY: Severe headache, hypertension COMPARISON: None. TECHNIQUE: Axial 5 mm thick images of the head were obtained without IV contrast. All CT scans are performed using dose optimization technique as appropriate and may include automated exposure control or mA/KV adjustment according to patient size. FINDINGS: No intracranial hemorrhage, mass, edema or shift of mid-line structures. No acute infarcti on changes seen. No cortical edema or sulcal effacement. Ventricles are normal. Mastoid air cells and visualized portions of the paranasal sinuses are clear. No acute bony findings. Asymmetry is created by head tilt within the scanner. IMPRESSION: Negative non-contrast CT head examination for acute or significant finding.
[2018-12-11 19:58] LABS: Absolute Lymphocytes (CBC) 0.5 K/uL (0.7-4.9); Absolute Monocytes 0.5 K/uL (0.1-1.3); Absolute Neutrophil 5.7 K/uL (1.8-8.0); Eosinophils % 3.9 % (0-4.4); Hematocrit 32.7 % (39.6-49.0); Lymphocytes % 6.7 % (15.3-44.8); MPV 7.6 fL (7.6-11.3); Monocytes % 7.3 % (3.3-12.3); RBC Red Blood Cell Count 3.69 M/uL (4.33-5.43)
--- NOTE | 2018-12-11 20:35 | RAD REPORT ---
EXAM DESCRIPTION: RAD - Chest Single View - 12/11/2018 8:16 pm CLINICAL HISTORY: Hypertension, chest pain and pressure COMPARISON: November 02, 2018 TECHNIQUE: AP portable chest image was obtained 2003 hour . FINDINGS: No focal lung parenchymal process. No failure or volume overload. Lung markings are simila r to comparison. Heart and vasculature are normal. No measurable pleural effusion and no pneumothorax . No acute bony abnormality seen. No acute aortic findings suspected. IMPRESSION: No acute cardiopulmonary process. No significant interval change.
[2018-12-11] MEDS ORDERED: HYDRALAZINE HCL 20 MG/ML VIAL ONE (21:00)
--- NOTE | 2018-12-11 22:21 | EDPHYS ---
Physician Documentation [facility] Name: Surjit Cleary Age: 63 yrs Sex: Male : 1955 Arrival Date: 12/11/2018 Time: 18:47 Bed 28 Private MD: ED Physician Ish Carver HPI: 12/11 19:31 This 63 yrs old Male presents to ER via EMS with unknown complaint. pkl 19:31 The patient complains of pain to the top of head and forehead. The patient describes pkl the headache as constant. Onset: The symptoms/episode began/occurred today. Associated signs and symptoms: Pertinent positives: elevated blood pressure. The patient has experienced similar episodes in the past, a few times. Historical: - Allergies: 18:51 No Known Allergies; mg2 - Home Meds: 20:00 amlodipine 10 mg tab [Active]; atorvastatin 40 mg Oral tab [Active]; aspirin 81 mg Oral mg2 chew [Active]; Diovan 160 mg Oral tab [Active]; Humalog 100 unit/mL Sub-Q crtg [Active]; gabapentin 100 mg Oral cap [Active]; labetalol 200 mg Oral tab [Active]; hydralazine 50 mg Oral tab [Active]; levetiracetam 500 mg Oral tab [Active]; Nephlex [Active]; Levemir 100 unit/mL subcutaneous soln [Active]; Vitamin D Oral [Active]; Tylenol #3 Oral [Active]; pantoprazole 40 mg Oral TbEC [Active]; - PMHx: 18:51 Dialysis; GERD; Hyperlipidemia; Hypertension; mg2 - PSHx: 18:51 None; mg2 - Immunization history:: Flu vaccine is up to date. - Social history:: Smoking status: Patient/guardian denies using tobacco, Patient/guardian denies using alcohol, street drugs, IV drugs. - Ebola Screening: : No symptoms or risks identified at this time. ROS: 19:31 Eyes: Negative for injury, pain, redness, and discharge, ENT: Negative for injury, pkl pain, and discharge, Neck: Negative for injury, pain, and swelling, Cardiovascular: Negative for chest pain, palpitations, and edema, Respiratory: Negative for shortness of breath, cough, wheezing, and pleuritic chest pain, Abdomen/GI: Negative for abdominal pain, nausea, vomiting, diarrhea, and constipation, Back: Negative for injury and pain, : Negative for injury, bleeding, discharge, and swelling, MS/Extremity: Negative for injury and deformity, Skin: Negative for injury, rash, and discoloration. 19:31 Neuro: Positive for headache, Negative for altered mental status, seizure activity, speech changes. Exam: 19:31 Head/Face: Normocephalic, atraumatic. Eyes: Pupils equal round and reactive to light, pkl extra-ocular motions intact. Lids and lashes normal. Conjunctiva and sclera are non-icteric and not injected. Cornea within normal limits. Periorbital areas with no swelling, redness, or edema. ENT: Nares patent. No nasal discharge, no septal abnormalities noted. Tympanic membranes are normal and external auditory canals are clear. Oropharynx with no redness, swelling, or masses, exudates, or evidence of obstruction, uvula midline. Mucous membranes moist. Neck: Trachea midline, no thyromegaly or masses palpated, and no cervical lymphadenopathy. Supple, full range of motion without nuchal rigidity, or vertebral point tenderness. No Meningismus. Chest/axilla: Normal chest wall appearance and motion. Nontender with no deformity. No lesions are appreciated. Cardiovascular: Regular rate and rhythm with a normal S1 and S2. No gallops, murmurs, or rubs. Normal PMI, no JVD. No pulse deficits. Respiratory: Lungs have equal breath sounds bilaterally, clear to auscultation and percussion. No rales, rhonchi or wheezes noted. No increased work of breathing, no retractions or nasal flaring. Abdomen/GI: Soft, non-tender, with normal bowel sounds. No distension or tympany. No guarding or rebound. No evidence of tenderness throughout. Back: No spinal tenderness. No costovertebral tenderness. Full range of motion. Skin: Warm, dry with normal turgor. Normal color with no rashes, no lesions, and no evidence of cellulitis. MS/ Extremity: Pulses equal, no cyanosis. Neurovascular intact. Full, normal range of motion. Neuro: Awake and alert, GCS 15, oriented to person, place, time, and situation. Cranial nerves II-XII grossly intact. Motor strength 5/5 in all extremities. Sensory grossly intact. Cerebellar exam normal. Normal gait. Vital Signs: 18:50 BP 237 / 101; Pulse 70; Resp 18; Temp 97.7; Pulse Ox 100% on R/A; Weight 68.95 kg; mg2 Height 5 ft. 7 in. (170.18 cm); Pain 10/10; 20:30 BP 229 / 96; Pulse 69; Resp 18; Temp 98.8; Pulse Ox 100% on R/A; Pain 2/10; mg2 20:30 BP 179 / 82; Pulse 65; Resp 18; Pulse Ox 95% on R/A; mg2 21:27 BP 167 / 76; Pulse 66; Resp 18; Temp 98.8; Pulse Ox 100% on R/A; mg2 22:30 BP 155 / 78; Pulse 68; Resp 18; Temp 98.5; Pulse Ox 100% on R/A; Pain 2/10; mg2 18:50 Body Mass Index 23.81 (68.95 kg, 170.18 cm) mg2 MDM: 19:20 Patient medically screened. pkl 22:19 Data reviewed: vital signs, nurses notes, lab test result(s), EKG, radiologic studies, pkl CT scan, plain films. 12/11 19:29 Order name: CBC with Diff; Complete Time: 20:49 pkl 12/11 19:29 Order name: Chem 7; Complete Time: 20:49 pkl 12/11 19:29 Order name: XRAY CXR (1 view); Complete Time: 20:49 pkl 12/11 19:29 Order name: CT Head Brain wo Cont; Complete Time: 20:49 pkl 12/11 19:29 Order name: Saline Lock; Complete Time: 19:46 pkl 12/11 19:29 Order name: EKG; Complete Time: 19:29 pkl 12/11 19:30 Order name: BP Recheck: q 15 mins.; Complete Time: 19:46 pkl Administered Medications: 19:45 Drug: cloNIDine 0.2 mg Route: PO; mg2 23:10 Follow up: Response: No adverse reaction; Marked relief of symptoms mg2 19:46 Drug: morphine 4 mg Route: IVP; Site: left forearm; mg2 23:11 Follow up: Response: No adverse reaction; Marked relief of symptoms mg2 19:46 Drug: Zofran 4 mg Route: IVP; Site: left forearm; mg2 23:11 Follow up: Response: No adverse reaction; Marked relief of symptoms mg2 19:46 Drug: Trandate 20 mg Route: IVP; Site: left forearm; mg2 23:11 Follow up: Response: No adverse reaction; Marked relief of symptoms mg2 21:02 Drug: hydrALAZINE 20 mg Route: IV; Rate: bolus; Site: left forearm; mg2 23:11 Follow up: Response: No adverse reaction; IV Status: Completed infusion mg2 Disposition: 12/11/18 22:20 Discharged to Home. Impression: Severe headache. Uncomtrolled hypertension. Chronic renal disease. - Condition is Stable. - Prescriptions for Tylenol- Codeine #3 300-30 mg Oral Tablet - take 1 tablet by ORAL route every 8 hours As needed; 20 tablet. Norvasc 10 mg Oral Tablet - take 1 tablet by ORAL route once daily; 30 tablet. - Medication Reconciliation Form, Thank You Letter, Antibiotic Education, Prescription Opioid Use form. - Follow up: Private Physician; When: 2 - 3 days; Reason: Re-evaluation by your physician. - Problem is new. - Symptoms have improved. Signatures: Dispatcher [employer] EDMS Ish Carver MD MD pkl Dariusz Morton RN RN mg2 Corrections: (The following items were deleted from the chart) 23:13 22:20 12/11/2018 22:20 Discharged to Home. Impression: Severe headache. Uncomtrolled mg2 hypertension. Chronic renal disease. Condition is Stable. Forms are Medication Reconciliation Form, Thank You Letter, Antibiotic Education, Prescription Opioid Use. Follow up: Private Physician; When: 2 - 3 days; Reason: Re-evaluation by your physician. Problem is new. Symptoms have improved. pkl
--- NOTE | 2018-12-11 22:21 | ER ---
Nurse's Notes [facility] Name: Surjit Cleary Age: 63 yrs Sex: Male : 1955 Arrival Date: 12/11/2018 Time: 18:47 Bed 28 Private MD: Diagnosis: Severe headache. Uncomtrolled hypertension. Chronic renal disease Presentation: 12/11 18:47 Presenting complaint: EMS states: patient has severe headache and blood pressure has mg2 been high today. he finished his dialysis today and took his blood pressure medicine today. Transition of care: patient was not received from another setting of care. Onset of symptoms was December 11, 2018. Risk Assessment: Do you want to hurt yourself or someone else? Patient reports no desire to harm self or others. Initial Sepsis Screen: Does the patient meet any 2 criteria? No. Patient's initial sepsis screen is negative. Does the patient have a suspected source of infection? No. Patient's initial sepsis screen is negative. Care prior to arrival: None. 18:47 Method Of Arrival: EMS mg2 18:47 Acuity: CHRIS 2 mg2 Triage Assessment: 20:00 General: Appears in no apparent distress. comfortable, Behavior is calm, cooperative. mg2 Historical: - Allergies: 18:51 No Known Allergies; mg2 - Home Meds: 20:00 amlodipine 10 mg tab [Active]; atorvastatin 40 mg Oral tab [Active]; aspirin 81 mg Oral mg2 chew [Active]; Diovan 160 mg Oral tab [Active]; Humalog 100 unit/mL Sub-Q crtg [Active]; gabapentin 100 mg Oral cap [Active]; labetalol 200 mg Oral tab [Active]; hydralazine 50 mg Oral tab [Active]; levetiracetam 500 mg Oral tab [Active]; Nephlex [Active]; Levemir 100 unit/mL subcutaneous soln [Active]; Vitamin D Oral [Active]; Tylenol #3 Oral [Active]; pantoprazole 40 mg Oral TbEC [Active]; - PMHx: 18:51 Dialysis; GERD; Hyperlipidemia; Hypertension; mg2 - PSHx: 18:51 None; mg2 - Immunization history:: Flu vaccine is up to date. - Social history:: Smoking status: Patient/guardian denies using tobacco, Patient/guardian denies using alcohol, street drugs, IV drugs. - Ebola Screening: : No symptoms or risks identified at this time. Screenin:12 Abuse screen: Denies threats or abuse. Denies injuries from another. Nutritional mg2 screening: No deficits noted. Tuberculosis screening: No symptoms or risk factors identified. Fall Risk IV access (20 points). Assessment: 19:46 Reassessment: patient sent to ct scan. mg2 20:00 General: Appears in no apparent distress. comfortable, Behavior is calm, cooperative. mg2 Pain: Complains of pain in forehead and top of head Pain does not radiate. Pain currently is 8 out of 10 on a pain scale. Quality of pain is described as aching, Pain began gradually, Is intermittent. Neuro: Level of Consciousness is awake, alert, obeys commands, Oriented to person, place, time, situation. Cardiovascular: Capillary refill < 3 seconds Patient's skin is warm and dry. Respiratory: Airway is patent Respiratory effort is even, unlabored, Respiratory pattern is regular, symmetrical. GI: No signs and/or symptoms were reported involving the gastrointestinal system. : No signs and/or symptoms were reported regarding the genitourinary system. EENT: No signs and/or symptoms were reported regarding the EENT system. Derm: Skin is intact, is healthy with good turgor, Skin is pink, warm \T\ dry. normal. Musculoskeletal: Circulation, motion, and sensation intact. Capillary refill < 3 seconds. Vital Signs: 18:50 BP 237 / 101; Pulse 70; Resp 18; Temp 97.7; Pulse Ox 100% on R/A; Weight 68.95 kg; mg2 Height 5 ft. 7 in. (170.18 cm); Pain 10/10; 20:30 BP 229 / 96; Pulse 69; Resp 18; Temp 98.8; Pulse Ox 100% on R/A; Pain 2/10; mg2 20:30 BP 179 / 82; Pulse 65; Resp 18; Pulse Ox 95% on R/A; mg2 21:27 BP 167 / 76; Pulse 66; Resp 18; Temp 98.8; Pulse Ox 100% on R/A; mg2 22:30 BP 155 / 78; Pulse 68; Resp 18; Temp 98.5; Pulse Ox 100% on R/A; Pain 2/10; mg2 18:50 Body Mass Index 23.81 (68.95 kg, 170.18 cm) mg2 ED Course: 18:47 Patient arrived in ED. mg2 18:49 Triage completed. mg2 18:50 Dariusz Morton RN is Primary Nurse. mg2 18:50 Arm band placed on right wrist. mg2 19:20 Ish Carver MD is Attending Physician. pkl 19:[address] vm2 19:45 CT completed. Patient tolerated procedure well. Patient moved back from CT. nj 19:46 CT Head Brain wo Cont In Process Unspecified. EDMS 20:00 Patient has correct armband on for positive identification. mg2 20:16 XRAY CXR (1 view) In Process Unspecified. EDMS 23:12 No provider procedures requiring assistance completed. Inserted saline lock: 20 gauge mg2 in left forearm, using aseptic technique. Blood collected. 23:12 IV discontinued, intact, bleeding controlled, No redness/swelling at site. Pressure mg2 dressing applied. Administered Medications: 19:45 Drug: cloNIDine 0.2 mg Route: PO; mg2 23:10 Follow up: Response: No adverse reaction; Marked relief of symptoms mg2 19:46 Drug: morphine 4 mg Route: IVP; Site: left forearm; mg2 23:11 Follow up: Response: No adverse reaction; Marked relief of symptoms mg2 19:46 Drug: Zofran 4 mg Route: IVP; Site: left forearm; mg2 23:11 Follow up: Response: No adverse reaction; Marked relief of symptoms mg2 19:46 Drug: Trandate 20 mg Route: IVP; Site: left forearm; mg2 23:11 Follow up: Response: No adverse reaction; Marked relief of symptoms mg2 21:02 Drug: hydrALAZINE 20 mg Route: IV; Rate: bolus; Site: left forearm; mg2 23:11 Follow up: Response: No adverse reaction; IV Status: Completed infusion mg2 Outcome: 22:20 Discharge ordered by . pkdel 23:13 Patient left the ED. mg2 23:13 Discharged to home via wheelchair. mg2 23:13 Condition: good 23:13 Discharge instructions given to patient, Instructed on discharge instructions, follow mg2 up and referral plans. medication usage, Demonstrated understanding of instructions, follow-up care, medications, Prescriptions given X 2. Signatures: Dispatcher [employer] EDMS Ish Carver MD MD pkSuraj Helm [facility] [place], Dariusz, RN RN mg2
[2018-12-11 23:20] VITALS: O2SAT 100
[2018-12-11 23:21] VITALS: BP 155/78; TEMP 98.5
--- NOTE | 2018-12-12 18:27 | EKG ---
Test Date: 2018-12-11 Test Time: 19:17:43 Broommaker: MEASUREMENT RESULTS: Intervals: Rate: 70 NV: 208 QRSD: 94 QT: 450 QTc: 486 [place]: P: 50 NV: 208 QRS: -13 T: 50 INTERPRETIVE STATEMENTS: Normal sinus rhythm Minimal voltage criteria for LVH, may be normal variant Prolonged QT Abnormal ECG No previous ECG available for comparison Electronically Signed On 12-12-18 18:24:05 CDT by Renzo Hammonds
== END 2018-12-11 23:13 | disposition home or self-care (01) ==
LOC: ER 18:40
DX: R51 Headache (principal); I12.0 Hypertensive chronic kidney disease with stage 5 chronic kidney disease or end stage renal disease; N18.6 End stage renal disease; Z99.2 Dependence on renal dialysis; K21.9 Gastro-esophageal reflux disease without esophagitis; E78.5 Hyperlipidemia, unspecified; Z79.4 Long term (current) use of insulin
CPT/HCPCS: 96365; 93005; 85025; 80048; 36415; 70450; 71045; 96375; 99284; 96366; J0360; J2405

== ENCOUNTER 2018-12-25 11:46 | Inpatient (IN) | payer OTHER ==
[2018-12-25 12:09] LABS: Absolute Lymphocytes (CBC) 0.9 K/uL (0.7-4.9); Absolute Monocytes 0.6 K/uL (0.1-1.3); Absolute Neutrophil 5.4 K/uL (1.8-8.0); Basophils % 1.2 % (0-1.3); Eosinophils % 5.3 % (0-4.4); Hematocrit 32.1 % (39.6-49.0); Lymphocytes % 12.4 % (15.3-44.8); MPV 7.6 fL (7.6-11.3); Monocytes % 7.9 % (3.3-12.3); RBC Red Blood Cell Count 3.55 M/uL (4.33-5.43)
--- NOTE | 2018-12-25 12:25 | RAD REPORT ---
EXAM DESCRIPTION: CT - Head Brain Wo Cont - 12/25/2018 12:16 pm CLINICAL HISTORY: Slurred speech, facial droop, dialysis patient COMPARISON: None. TECHNIQUE: Axial 5 mm thick images of the head were obtained without IV contrast. All CT scans are performed using dose optimization technique as appropriate and may include automated exposure control or mA/KV adjustment according to patient size. FINDINGS: No intracranial hemorrhage, mass, edema or shift of mid-line structures. No acute infarcti on changes seen. Mild atrophy and chronic ischemic changes are present. Ventricles are in proportion to volume loss. Mastoid air cells and visualized portions of the paranasal sinuses are clear. No acute bony findings. IMPRESSION: No hemorrhage, mass or acute cortical based infarction. Mild atrophy and chronic ischemic change. Chronic ischemic changes can mask nonhemorrhagic acute infarction. MR brain followup can be obtained if there is ongoing concern for acute ischemia.
[2018-12-25 12:33] LABS: Bilirubin Direct 0.1 mg/dL (0-0.2); Bilirubin Total 0.5 mg/dL (0.2-1.0); Protein, Total 7.6 g/dL (6.4-8.2)
--- NOTE | 2018-12-25 12:55 | EDPHYS ---
Physician Documentation [facility] Name: Surjit Cleary Age: 63 yrs Sex: Male : 1955 Arrival Date: 12/25/2018 Time: 11:47 Bed 7 Private MD: ED Physician Dave Harris HPI: 12/25 11:53 This 63 yrs old Male presents to ER via EMS with complaints of S/S of Possible ma2 Stroke. 11:53 The patient's problem is reported as sent from HD for facial droop noticed 3 hrs ago ma2 and elevated blood sugar, he did not get the HD< he states has headache moderate gradual x 1 day no change in speech or weakness . Onset: The symptoms/episode began/occurred gradually, 1 day(s) ago. Associated signs and symptoms: Pertinent positives: lightheadedness, Pertinent negatives: agitation, chest pain, diaphoresis, dizziness. Severity of symptoms: At their worst the symptoms were mild moderate in the emergency department the symptoms are unchanged. The patient has not experienced similar symptoms in the past. Historical: - Allergies: 12:09 No Known Allergies; sg - PMHx: 12:09 Dialysis; GERD; Hyperlipidemia; Hypertension; sg - PSHx: 12:09 None; sg - Immunization history:: Adult Immunizations up to date. - Social history:: Smoking status: Patient/guardian denies using tobacco, Patient/guardian denies using alcohol, Patient uses Patient/guardian denies using alcohol, street drugs, The patient lives with family. - Ebola Screening: : Patient negative for fever greater than or equal to 101.5 degrees Fahrenheit, and additional compatible Ebola Virus Disease symptoms Patient denies exposure to infectious person Patient denies travel to an Ebola-affected area in the 21 days before illness onset. - Family history:: not pertinent. ROS: 11:53 Constitutional: Negative for fever, chills, and weight loss, Cardiovascular: Negative ma2 for chest pain, palpitations, and edema, Respiratory: Negative for shortness of breath, cough, wheezing, and pleuritic chest pain, Abdomen/GI: Negative for abdominal pain, nausea, diarrhea, and constipation, MS/Extremity: Negative for injury and deformity. 11:53 Neuro: Positive for headache, Negative for gait disturbance, numbness, speech changes, visual changes, acute changes. 11:53 All other systems are negative. Exam: 11:53 Constitutional: This is a well developed, well nourished patient who is awake, alert, ma2 and in no acute distress. Head/Face: Normocephalic, atraumatic. Eyes: Pupils equal round and reactive to light, extra-ocular motions intact. Lids and lashes normal. Conjunctiva and sclera are non-icteric and not injected. Cornea within normal limits. Periorbital areas with no swelling, redness, or edema. Chest/axilla: Normal chest wall appearance and motion. Nontender with no deformity. No lesions are appreciated. Cardiovascular: Regular rate and rhythm with a normal S1 and S2. No gallops, murmurs, or rubs. Normal PMI, no JVD. No pulse deficits. Respiratory: Lungs have equal breath sounds bilaterally, clear to auscultation and percussion. No rales, rhonchi or wheezes noted. No increased work of breathing, no retractions or nasal flaring. Abdomen/GI: Soft, non-tender, with normal bowel sounds. No distension or tympany. No guarding or rebound. No evidence of tenderness throughout. Skin: Warm, dry with normal turgor. Normal color with no rashes, no lesions, and no evidence of cellulitis. MS/ Extremity: Pulses equal, no cyanosis. Neurovascular intact. Full, normal range of motion. Neuro: Awake and alert, GCS 15, oriented to person, place, time, and situation. Cranial nerves II-XII grossly intact. Motor strength 5/5 in all extremities. Sensory grossly intact. Cerebellar exam normal. Normal gait. 12:55 Radiologist reports: verbally wnl ma2 Vital Signs: 11:51 Weight 58.97 kg; Height 5 ft. 8 in. (175 cm); hj 11:52 BP 190 / 83; Pulse 72; Resp 15; Temp 97.4(O); Pulse Ox 99% on R/A; em1 14:00 BP 183 / 82; Pulse 74 MON; Resp 17 S; Pulse Ox 98% on R/A; Pain 0/10; sg 16:40 BP 151 / 84; Pulse 69; Resp 18; Pulse Ox 100% on R/A; Pain 1/10; sg 17:45 BP 168 / 82; Pulse 70; Resp 17; Pulse Ox 99% on R/A; sg 19:51 BP 175 / 84; Pulse 62; Resp 18; Pulse Ox 100% on R/A; Pain 0/10; aa1 11:51 Body Mass Index 19.25 (58.97 kg, 175 cm) hj NIH Stroke Scale Scores: 12:11 NIHSS Score: 0 sg MDM: 11:48 Patient medically screened. ma2 11:53 Differential diagnosis: metabolic disorder, drug effects, DKA vs HONK acidosis vs ma2 hyperkalemia vs hyperuremia. 12:52 Data reviewed: vital signs, nurses notes. Counseling: I had a detailed discussion with ma2 the patient and/or guardian regarding: the historical points, exam findings, and any diagnostic results supporting the discharge/admit diagnosis, the presence of at least one elevated blood pressure reading (>120/80) during this emergency department visit, the need for further work-up and treatment in the hospital. Response to treatment: the patient's symptoms have mildly improved after treatment. ED course: patient has DKA< CTH wnl verbally by dr. winn, i discussed need for emergent HD by dr. Buitrago, needs ICU, discussed with dr. solorzano . 12/25 11:53 Order name: Basic Metabolic Panel; Complete Time: 12:36 ma2 12/25 11:53 Order name: CBC with Diff; Complete Time: 12:24 ma2 12/25 11:53 Order name: Creatinine for Radiology; Complete Time: 12:37 ma2 12/25 11:53 Order name: Hepatic Function; Complete Time: 12:36 ma2 12/25 11:53 Order name: Lipase; Complete Time: 12:36 de2 12/25 12:01 Order name: Glucose, Ancillary Testing; Complete Time: 12:24 EDMS 12/25 14:14 Order name: ABG Arterial Blood Gas; Complete Time: 22:16 EDMS 12/25 14:14 Order name: Osmolality, Serum; Complete Time: 22:16 EDMS 12/25 14:26 Order name: Glucose, Ancillary Testing; Complete Time: 22:16 EDMS 12/25 14:35 Order name: Glucose sg 12/25 15:26 Order name: Glucose Level; Complete Time: 22:16 EDMS 12/25 15:35 Order name: Acetone Level; Complete Time: 22:16 EDMS 12/25 16:05 Order name: Glucose, Ancillary Testing; Complete Time: 22:16 [facility] 12/25 11:53 Order name: IV Saline Lock; Complete Time: 12:07 [facility] 12/25 11:53 Order name: Labs collected and sent; Complete Time: 12:07 [facility] 12/25 11:53 Order name: CT Head Brain wo Cont; Complete Time: 22:16 [facility] 12/25 18:03 Order name: Glucose, Ancillary Testing; Complete Time: 22:16 EDMS Administered Medications: 12:55 Drug: NS 0.9% 500 ml Route: IV; Rate: 70 ml/hr; Site: left forearm; sg 13:02 Drug: Insulin Drip - (Insulin Regular Human 100 units, NS 0.9% 100 ml) {Co-Signature: mika tilley (Jose Guadalupe Casiano RN).} Route: IV; Rate: calculated rate; Site: left forearm; 14:30 Follow up: Rate change 5 units/hr sg 16:06 Follow up: Rate change 3 units/hr sg 18:06 Follow up: Response: No adverse reaction; Rate change 2 units/hr sg Point of Care Testing: Blood Glucose: 12:02 Blood Glucose: High (>450 mg/dL); em1 16:06 Blood Glucose: 427 mg/dL; sg 19:51 Blood Glucose: 92 mg/dL; aa1 20:29 Blood Glucose: 77 mg/dL; ag4 22:12 Blood Glucose: 204 mg/dL; ag4 22:38 Blood Glucose: 165 mg/dL; ag4 Ranges: Critical Glucose Levels:Adult <50 mg/dl or >400 mg/dl <40 mg/dl or >180 mg/dl Disposition: 12/25/18 12:55 Hospitalization ordered by Liam Solorzano for Inpatient Admission. 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 - Bed requested for Telemetry/MedSurg (Inpatient). - Status is Inpatient Admission. aa1 - Condition is Stable. - Problem is new. - Symptoms are unchanged. UTI on Admission? No NIH Stroke Scale - NIH Stroke Score Date: 12/25/2018 Time: 12:11 Total Score = 0 1a. Level of Consciousness (LOC) - 0(Alert) 1b. Level of Consciousness (LOC) (Year \T\ Age) - 0(Both) 1c. LOC Commands (Open \T\ Closes Eyes/Digital Photographic Printer) - 0(Both) 2. Best Gaze (Lateral Gaze Paresis) - 0(Normal) 3. Visual Field Loss - 0(No visual loss) 4. Facial Palsy - 0(Normal) 5a. Left Arm: Motor (10-second hold) - 0(No drift) 5b. Right Arm: Motor (10-second hold) - 0(No drift) 6a. Left Leg: Motor (5-second hold - always test supine) - 0(No drift) 6b. Right Leg: Motor (5-second hold - always test supine) - 0(No drift) 7. Limb Ataxia (finger/nose \T\ heel/combs - test with eyes open) - 0(Absent) 8. Sensory Loss (pinprick arms/legs/face) - 0(Normal) 9. Best Language: Aphasia (description/naming/reading) - 0(No aphasia) 10. Dysarthria (speech clarity - read or repeat words) - 0(Normal) 11. Extinction and Inattention (visual/tactile/auditory/spatial/personal) - 0(No abnormality) Initials: sg Signatures: Dispatcher [employer] EDMS Erika Constantino Steven, RN RN Keisha Nj RN RN aa1 Jose Guadalupe Casiano RN RN hj Garcia, Cindy, RN RN Dave Harris MD MD ma2 Jose Guadalupe tilley Corrections: (The following items were deleted from the chart) 12:17 12:04 GLUCOSE+C.LAB.BRZ ordered. EDIN EDMS 16:14 12:55 Hospitalization Ordered by Liam Solorzano MD for Inpatient Admission. bd Preliminary diagnosis is Other specified diabetes mellitus with ketoacidosis without coma. Bed requested for Telemetry/MedSurg (Inpatient). Status is Inpatient Admission. Condition is Stable. Problem is new. Symptoms are unchanged. UTI on Admission? No. ma2 23:00 16:14 12/25/2018 12:55 Hospitalization Ordered by Liam Solorzano MD for Inpatient cg Admission. 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 Bed requested for [facility] ER HOLD. Status is Inpatient Admission. Condition is Stable. Problem is new. Symptoms are unchanged. UTI on Admission? No. bd 23:01 23:00 12/25/2018 12:55 Hospitalization Ordered by Liam Solorzano MD for Inpatient cg Admission. 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 Bed requested for Telemetry/MedSurg (Inpatient). Status is Inpatient Admission. Condition is Stable. Problem is new. Symptoms are unchanged. UTI on Admission? No. cg 23:42 23:01 12/25/2018 12:55 Hospitalization Ordered by Liam Solorzano MD for Inpatient aa1 Admission. 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 Bed requested for Telemetry/MedSurg (Inpatient). Status is Inpatient Admission. Condition is Stable. Problem is new. Symptoms are unchanged. UTI on Admission? No. cg
--- NOTE | 2018-12-25 12:55 | ER ---
Nurse's Notes [facility] Name: Surjit Cleary Age: 63 yrs Sex: Male : 1955 Arrival Date: 12/25/2018 Time: 11:47 Bed 7 Private MD: Diagnosis: Other specified diabetes mellitus with ketoacidosis without coma Presentation: 12/25 11:47 Presenting complaint: EMS states: coming from [facility], per staff around 11:30 am while on dialysis, they noticed him on slurred speech, facial droop, no teeth available; reports of headache; BGL- reads high; denies weakness and no drift; BP- 190/80;. Transition of care: patient was received from another setting of care (ambulatory specialty care practice). No acute neurological deficit is noted. Onset of symptoms was December 25, 2018 at 11:30. Risk Assessment: Do you want to hurt yourself or someone else? Patient reports no desire to harm self or others. Initial Sepsis Screen: Does the patient meet any 2 criteria? No. Patient's initial sepsis screen is negative. Does the patient have a suspected source of infection? No. Patient's initial sepsis screen is negative. Care prior to arrival: None. 11:47 Method Of Arrival: EMS: [facility] 11:47 Acuity: CHRIS 2 hj Triage Assessment: 11:52 The onset of the patients symptoms was December 25, 2018 at 11:30. General: Appears in no hj apparent distress. uncomfortable, Behavior is calm, cooperative, appropriate for age. Pain: Complains of pain in head. Neuro: Reports headache. Historical: - Allergies: 12:09 No Known Allergies; sg - PMHx: 12:09 Dialysis; GERD; Hyperlipidemia; Hypertension; sg - PSHx: 12:09 None; sg - Immunization history:: Adult Immunizations up to date. - Social history:: Smoking status: Patient/guardian denies using tobacco, Patient/guardian denies using alcohol, Patient uses Patient/guardian denies using alcohol, street drugs, The patient lives with family. - Ebola Screening: : Patient negative for fever greater than or equal to 101.5 degrees Fahrenheit, and additional compatible Ebola Virus Disease symptoms Patient denies exposure to infectious person Patient denies travel to an Ebola-affected area in the 21 days before illness onset. - Family history:: not pertinent. Screenin:00 Abuse screen: Denies threats or abuse. Denies injuries from another. Nutritional sg screening: No deficits noted. Tuberculosis screening: No symptoms or risk factors identified. Never had TB. Fall Risk None identified. Assessment: 12:00 VAN Scoring: Arm Drift: Patients demonstrates NO arm weakness. Patient is VAN Negative. sg Reassessment: a serum glucose has been obtained due to FSBG reading greater than 500. 12:10 Patient has been NPO before screening. The patient is alert, and able to follow sg commands. The patient does not exhibit slurred or garbled speech. The patient is not exhibiting difficulty speaking. The patient does not exhibit difficulty understanding words. The patient is able to swallow own secretions with no drooling or need for suction. Patient tolerated one teaspoon of water. No drooling, immediate coughing, gurgling, or clearing of the throat was noted. The patient tolerated 90mL of water. No drooling, immediate coughing, gurgling, or clearing of the throat was noted. The patient passed the bedside swallow screening. Oral medications may be given as ordered. Contact Physician for further diet orders. Provider notified of bedside swallow screening results: Liam Nagel MD. 12:15 General: Appears in no apparent distress. Behavior is calm, cooperative. sg 12:15 Pain: Denies pain. Neuro: Level of Consciousness is awake, alert, obeys commands, sg Oriented to person, place, time, situation. Cardiovascular: No deficits noted. Respiratory: Airway is patent Respiratory effort is even, unlabored, Respiratory pattern is regular, symmetrical, Breath sounds are clear bilaterally. GI: No signs and/or symptoms were reported involving the gastrointestinal system. : No signs and/or symptoms were reported regarding the genitourinary system. EENT: No signs and/or symptoms were reported regarding the EENT system. Derm: Skin is intact, is healthy with good turgor, Skin is pink, warm \T\ dry. Musculoskeletal: Reports generalized weakness. 12:30 T-PA (Activase) Screening: Indications: Definite evidence of stroke, ischemic, embolic, sg or hypertensive: No. 13:00 Reassessment: Patient appears in no apparent distress at this time. No changes from sg previously documented assessment. Patient and/or family updated on plan of care and expected duration. Pain level reassessed. Patient is alert, oriented x 3, equal unlabored respirations, skin warm/dry/pink. 14:00 Reassessment: Patient appears in no apparent distress at this time. No changes from sg previously documented assessment. Patient and/or family updated on plan of care and expected duration. Pain level reassessed. Patient is alert, oriented x 3, equal unlabored respirations, skin warm/dry/pink. 14:42 Reassessment: at bedside at this time. sg 15:00 Reassessment: Patient appears in no apparent distress at this time. No changes from sg previously documented assessment. Patient and/or family updated on plan of care and expected duration. Pain level reassessed. Patient is alert, oriented x 3, equal unlabored respirations, skin warm/dry/pink. 16:00 Reassessment: Patient appears in no apparent distress at this time. No changes from sg previously documented assessment. Patient and/or family updated on plan of care and expected duration. Pain level reassessed. Patient is alert, oriented x 3, equal unlabored respirations, skin warm/dry/pink. 17:00 Reassessment: Patient appears in no apparent distress at this time. No changes from sg previously documented assessment. Patient and/or family updated on plan of care and expected duration. Pain level reassessed. Patient is alert, oriented x 3, equal unlabored respirations, skin warm/dry/pink. 18:00 Reassessment: Patient appears in no apparent distress at this time. No changes from sg previously documented assessment. Patient and/or family updated on plan of care and expected duration. Pain level reassessed. Patient is alert, oriented x 3, equal unlabored respirations, skin warm/dry/pink. Vital Signs: 11:51 Weight 58.97 kg; Height 5 ft. 8 in. (175 cm); hj 11:52 BP 190 / 83; Pulse 72; Resp 15; Temp 97.4(O); Pulse Ox 99% on R/A; em1 14:00 BP 183 / 82; Pulse 74 MON; Resp 17 S; Pulse Ox 98% on R/A; Pain 0/10; sg 16:40 BP 151 / 84; Pulse 69; Resp 18; Pulse Ox 100% on R/A; Pain 1/10; sg 17:45 BP 168 / 82; Pulse 70; Resp 17; Pulse Ox 99% on R/A; sg 19:51 BP 175 / 84; Pulse 62; Resp 18; Pulse Ox 100% on R/A; Pain 0/10; aa1 11:51 Body Mass Index 19.25 (58.97 kg, 175 cm) NIH Stroke Scale Scores: 12:11 NIHSS Score: 0 ED Course: 11:47 Patient arrived in ED. hj 11:48 Dave Harris MD is Attending Physician. ma2 11:51 Triage completed. hj 11:52 Arm band placed on right wrist. hj 11:53 Patient has correct armband on for positive identification. Placed in gown. Bed in low hj position. Call light in reach. Side rails up X2. 11:55 João Palomino, RN is Primary Nurse. hj 12:00 Initial lab(s) drawn, by in, sent to lab. Inserted saline lock: 22 gauge in left sg forearm, using aseptic technique. Blood collected. 12:02 Notified ED physician of Notified primary nurse of point of care results. em1 12:15 CT completed. Patient tolerated procedure well. Patient moved to CT via stretcher. sj Patient moved back from CT. 12:15 CT Head Brain wo Cont In Process Unspecified. EDMS 12:54 Liam Nagel MD is Hospitalizing Provider. ma2 22:56 Primary Nurse role handed off by João Palomino, RN bb Administered Medications: 12:55 Drug: NS 0.9% 500 ml Route: IV; Rate: 70 ml/hr; Site: left forearm; sg 13:02 Drug: Insulin Drip - (Insulin Regular Human 100 units, NS 0.9% 100 ml) {Co-Signature: [facility] (Jose Guadalupe Casiano RN).} Route: IV; Rate: calculated rate; Site: left forearm; 14:30 Follow up: Rate change 5 units/hr sg 16:06 Follow up: Rate change 3 units/hr sg 18:06 Follow up: Response: No adverse reaction; Rate change 2 units/hr Point of Care Testing: Blood Glucose: 12:02 Blood Glucose: High (>450 mg/dL); em1 16:06 Blood Glucose: 427 mg/dL; sg 19:51 Blood Glucose: 92 mg/dL; aa1 20:29 Blood Glucose: 77 mg/dL; ag4 22:12 Blood Glucose: 204 mg/dL; ag4 22:38 Blood Glucose: 165 mg/dL; ag4 Ranges: Outcome: 12:55 Decision to Hospitalize by Provider. ma2 23:42 Patient left the ED. aa1 NIH Stroke Scale - NIH Stroke Score Date: 12/25/2018 Time: 12:11 Total Score = 0 1a. Level of Consciousness (LOC) - 0(Alert) 1b. Level of Consciousness (LOC) (Year \T\ Age) - 0(Both) 1c. LOC Commands (Open \T\ Closes Eyes/Gas Generator Operator) - 0(Both) 2. Best Gaze (Lateral Gaze Paresis) - 0(Normal) 3. Visual Field Loss - 0(No visual loss) 4. Facial Palsy - 0(Normal) 5a. Left Arm: Motor (10-second hold) - 0(No drift) 5b. Right Arm: Motor (10-second hold) - 0(No drift) 6a. Left Leg: Motor (5-second hold - always test supine) - 0(No drift) 6b. Right Leg: Motor (5-second hold - always test supine) - 0(No drift) 7. Limb Ataxia (finger/nose \T\ heel/combs - test with eyes open) - 0(Absent) 8. Sensory Loss (pinprick arms/legs/face) - 0(Normal) 9. Best Language: Aphasia (description/naming/reading) - 0(No aphasia) 10. Dysarthria (speech clarity - read or repeat words) - 0(Normal) 11. Extinction and Inattention (visual/tactile/auditory/spatial/personal) - 0(No abnormality) Initials: sg Signatures: Dispatcher [employer] EDMS João Palomino RN RN sg Autenrieth, Alissa, RN RN aa1 Jones, Susan sj Ballard, Brenda, RN RN bb Martinez, Eric em1 Joaquin, Henry, RN RN hj Alzahri, Mohammad, MD MD ma2 Guzman, Adan agIra tilley Corrections: (The following items were deleted from the chart) 19:46 12:10 The patient is alert, and able to follow commands. The patient does not sg exhibit slurred or garbled speech. The patient is not exhibiting difficulty speaking. The patient does not exhibit difficulty understanding words. The patient is able to swallow own secretions with no drooling or need for suction. Patient tolerated one teaspoon of water. No drooling, immediate coughing, gurgling, or clearing of the throat was noted. The patient tolerated 90mL of water. No drooling, immediate coughing, gurgling, or clearing of the throat was noted. The patient passed the bedside swallow screening. Oral medications may be given as ordered. Contact Physician for further diet orders. Provider notified of bedside swallow screening results: Liam Nagel MD sg
[2018-12-25] MEDS ORDERED: INSULIN -REGULAR HUMAN 100 UNIT in NA CHLORIDE 0.9% 100 ML IV SCH (13:00)
[2018-12-25] MEDS ORDERED: NA CHLORIDE 0.9% 500 ML ONE (13:53)
[2018-12-25 15:27] LABS: Blood Gas Oxyhemoglobin 94.8 % (94-97); Blood O2 Saturation 96.9 % (92-98.5)
[2018-12-25] MEDS: ENOXAPARIN 30 MG/0.3 ML SQ SCH (19:58)
[2018-12-25] MEDS ORDERED: D5 0.45 NS 1,000 ML IV SCH (19:58)
[2018-12-25] MEDS ORDERED: ONDANSETRON 4 MG/2 ML VIAL IV PRN (19:58)
[2018-12-25] MEDS ORDERED: NA CHLORIDE 0.9% 1,000 ML IV ONE (19:58)
[2018-12-25] MEDS ORDERED: NACHLORIDE 0.45% 1,000 ML IV SCH (19:58)
[2018-12-25] MEDS ORDERED: D50W 25 GM/50 ML SYRINGE IV ONE ×2 (21:55→21:59)
[2018-12-25] MEDS ORDERED: ENOXAPARIN 30 MG/0.3 ML SQ ONE (22:19)
[2018-12-25] MEDS ORDERED: NA CHLORIDE 0.9% 1,000 ML ONE (22:19)
[2018-12-25] MEDS ORDERED: HYDRALAZINE HCL 20 MG/ML VIAL IV ONE (22:19)
[2018-12-25] MEDS ORDERED: AMLODIPINE 5 MG TAB PO ONE (22:33)
[2018-12-26 00:51] LABS: Potassium 3.4 mmol/L (3.5-5.1)
--- NOTE | 2018-12-26 02:02 | HP ---
Date of Admission: 12/25/2018 Chief Complaint: Generalized weakness. Siphoner: Shanon Swartz MD with Nephrology. History Of Present Illness: The patient is a 63-year-old male with past medical history of end-stage renal disease, on hemodialysis; diabetes mellitus type 2; hypertension; hyperlipidemia; seizure diso rder; right eye blindness, who was in his usual state of health until day of admission when he was at his dialysis appointment and felt very weak. States that he was unable to walk, but for the past fe w days. The patient was found to be somewhat confused and have facial asymmetry; therefore, he was s ent to the ER for further evaluation. In the ER, his lab work showed a glucose level of 812, anion g ap was elevated at 20, acetone level was negative, white count was normal. The patient's symptoms we re constant, moderate, progressively worsening. There was no facial asymmetry found when he was in [facility] ER. His head CT scan was also negative. When seen in the ER he was awake, alert, oriented x3, in some mild distress. He was given 1 L bolus in the ER and started on insulin drip. Past Medical History: Hypertension; end-stage renal disease, on dialysis; hyperlipidemia; gastroesop hageal reflux disease; seizure disorder; right eye blindness. Surgical History: Dialysis catheter. Allergies: NO KNOWN DRUG ALLERGIES. Medications: List reviewed. Social History: The patient denies any tobacco use, alcohol use, or illicit drug use. Lives with hi s son, has been requiring assistance with ambulation. Family History: The patient denies any significant family history. Review of Systems: Ten-point system reviewed, negative except as per HPI. Physical Examination: Vital Signs: Stable. The patient is afebrile. General: Awake, alert, oriented x3, in some mild distress, ill-appearing male, appears older than st ated age. HEENT: Normocephalic, atraumatic. PERRLA. EOMI. Dry mucous membranes. Oropharynx is clear. Poor dentition. The patient only has 1 tooth in fact. Conjunctivae anicteric. Neck: Supple. No JVD. Trachea midline. CV: S1, S2. Regular rate and rhythm. Peripheral pulses present. Respiratory: Diminished breath sounds at the bases. No wheezing or stridor. No use of accessory mu scles. Gastrointestinal: Abdomen is soft, nontender, nondistended. Positive bowel sounds. Extremities: No clubbing, cyanosis, or edema. No calf tenderness. Neuro: Cranial nerves 2 through 12 intact grossly. No focal neurological deficit. Strength is 5/5 in bilateral upper and lower extremities. Sensation decreased to light touch in lower extremities. Speech is normal. No facial asymmetry. Skin: No rashes. Normal skin turgor. Laboratory Data: Sodium 124, potassium 4, chloride 86, CO2 18, BUN 90, creatinine 10.2, glucose 812, calcium 7.1, lipase 463. Serum osmolality is 332. ABG; pH is 7.26, pCO2 41.1, PO2 105, bicarb 17.8 . WBC 7.3, H and H 10.6 and 32.1, platelets 230, acetone level is negative. Head CT scan shows no a cute intracranial abnormalities. Assessment And Plan: A 63-year-old male with: 1.Acute metabolic encephalopathy, likely due to side effects from dialysis and hypotension, orthosta tic. The patient is now back to his baseline. No focal neurological symptoms. 2.Generalized weakness. We will obtain PT evaluation. 3.End-stage renal disease, on hemodialysis. Dr. Coles has been consulted. The patient goes to [facility]. She recommends completing dialysis in a.m. 4.Hyperosmolar nonketotic hyperglycemia. We will start on IV insulin. Acetone level is negative. Osmolality is 323. ABG shows pH of 7.23. We will repeat serial BMPs and monitor. May need to switc h to subcutaneous insulin once the blood sugar levels are improved and anion gap is closed. 5.Diabetes mellitus type 2 with hyperglycemic hyperosmolar syndrome, uncontrolled. The patient will need diabetic education. Monitor blood glucose levels. Continue with IV insulin drip. 6.Mixed hyperlipidemia. Continue home medications. 7.Essential hypertension. Resume home medications as appropriate. 8.Right eye blindness. 9.Seizure disorder. We will place on seizure precautions. 10.Deep vein thrombosis prophylaxis with Lovenox renally dosed. 11.Gastroesophageal reflux disease without esophagitis. We will continue PPI. Plan: Admit to ICU, place as inpatient. Length of stay greater than 2 midnights. Reconcile home me dications once put in the system. /JESEL Voice ID: [id number]
--- NOTE | 2018-12-26 02:26 | CON ---
Date of Consultation: 12/25/2018 Chief Complaint: End-stage renal disease, on dialysis; altered mental status. History Of Present Illness: The patient came to the hospital because of altered mental status. Prim arily he presented to dialysis unit for routine treatment, although he was confused and lethargic. E MS was called. The patient was transferred to emergency room. He underwent workup for altered menta l status. CT scan was done without contrast and it showed no intracranial hemorrhage, no mass, no ed marilyn, or shift of midline structure. The patient is DICTATION ENDS HERE EB/MODL Voice ID: [id number] Report ID: [id number]
--- NOTE | 2018-12-26 02:35 | CON ---
Date of Consultation: 12/25/2018 Chief Complaint: End-stage renal disease, altered mental status. History Of Present Illness: The patient was seen in D[facility] Center today, but due to altered mental status he was transferred to emergency room for further evaluation. He was found to have DKA and CT scan of the head was done to rule out acute changes. It did not show intracranial hemorrhage now, n o midline shift. The patient is admitted to the hospital because of uncontrolled diabetes and ketoac idosis without coma, although he is somewhat confused and disoriented. He is oriented to himself and place. Review of Systems: Unobtainable. The patient is confused, cannot provide review of systems. Past Medical History: End-stage renal disease, hypertension, GERD, hyperlipidemia, anemia, CKD, deepti l osteodystrophy. Social History: Denies tobacco, alcohol, or illicit drugs. Family History: No kidney disease in the family. Physical Examination: General: The patient is confused, lethargic. Eyes: Anicteric sclerae. EOMI. Ears, Nose, and Throat: Oral mucosa moist. No pallor. Neck: Supple. No bruits. Lungs: Few crackles at bases. Heart: S1, S2. Abdomen: Soft, benign. Extremities: Minimal edema. Vital Signs: Blood pressure is 190/83, heart rate 72, respiratory rate 18, SpO2 is 99% on room air, temperature 97.4. Laboratory Data: Hemoglobin 10.6, WBC 7.3, platelet count is 230,000. Chemistry; sodium 124, glucos e 812, potassium 4.0, chloride 86, bicarbonate 18, BUN 90, calcium 7.1, albumin 4.0, total protein 7. 6. Impression And Plan: 1.Altered mental status, severe hyperglycemia, hyperosmolal state. The patient will start insulin f or blood glucose control. The patient currently is unstable for dialysis. Dialysis will be done in the morning. The patient does not have hyperkalemia, but is now emergent indication for dialysis. T he patient has end-stage renal disease. He is dialysis dependent. Currently he will require aggress anabelle treatment with insulin and likely admission to intensive care unit. 2.Anemia and chronic kidney disease. Monitor hemoglobin level, adjust treatment. 3.Renal osteodystrophy. Continue renal diet and binders. The patient may need to have Speech Thera py evaluation to rule out dysphagia. 4.Hypertension. Blood pressure is elevated. The patient has hypertensive urgency. Continue blood p ressure medication, resume medication by mouth when patient is cleared by Speech Therapy. Continue I V medication. CARMELO/MICHAEL Voice ID: [id number] Report ID: [id number]
[2018-12-26] MEDS ORDERED: NACHLORIDE 0.45% 1,000 ML IV SCH (03:00)
[2018-12-26 04:18] LABS: Absolute Lymphocytes (CBC) 1.1 K/uL (0.7-4.9); Absolute Monocytes 0.6 K/uL (0.1-1.3); Absolute Neutrophil 9.8 K/uL (1.8-8.0); Basophils % 1.1 % (0-1.3); Eosinophils % 4.2 % (0-4.4); Hematocrit 31.8 % (39.6-49.0); Lymphocytes % 9.2 % (15.3-44.8); MPV 7.4 fL (7.6-11.3); Monocytes % 5.3 % (3.3-12.3); RBC Red Blood Cell Count 3.64 M/uL (4.33-5.43)
[2018-12-26 05:14] LABS: Albumin 3.7 g/dL (3.4-5.0); Bilirubin Total 0.6 mg/dL (0.2-1.0); Potassium 3.5 mmol/L (3.5-5.1); Protein, Total 6.9 g/dL (6.4-8.2)
[2018-12-26] MEDS: HYDRALAZINE HCL 25 MG TABLET PO SCH ×3 (08:44→20:36)
[2018-12-26] MEDS ORDERED: NA CHLORIDE 0.9% 1,000 ML IV PRN (09:54)
[2018-12-26] MEDS ORDERED: ALBUMIN HUMAN 25% 50 ML IV SCH (10:00)
--- NOTE | 2018-12-26 11:05 | P.PN ---
Subjective Date of Service: 12/25/18 Subjective: Improving (the patient doing better after hydration. Patient is end -stage renal disease and he was hyperglycemic. We will need to monitor his blood sugars since he was on insulin drip. He can go to the floor and will check his blood sugars q.4 hours. He is on hypoglycemic protocol as well. Check a hemoglobin A1c in the morning as well. Nephrology has been consulted) Review of Systems 10-point ROS is otherwise unremarkable Physical Examination - Vital Signs Temperature: 97.4 F Blood Pressure: 164/77 Pulse: 76 Respirations: 15 Pulse Ox (%): 96 - Physical Exam General: Alert, In no apparent distress, Oriented x3 HEENT: EOMI Respiratory: Diminished Cardiovascular: Regular rate/rhythm - Studies Laboratory Data (last 24 hrs) 12/25/18 12:00: Glucose Cancelled 12/25/18 12:00: Creatinine 10.20 H* 12/25/18 12:00: WBC 7.3, Hgb 10.6 L, Hct 32.1 L, Plt Count 230 D 12/25/18 12:00: Sodium 124 L, Potassium 4.0, BUN 90 H D, Creatinine 10.20 H* D, Glucose 812 H*, Total Bilirubin 0.5, AST 16, ALT 28, Alkaline Phosphatase 121 H , Lipase 463 H Medications List Reviewed: Yes Assessment & Plan - Problems (Diagnosis) (1) Hyperosmolar (nonketotic) coma Current Visit: Yes Status: Acute (2) Generalized weakness Current Visit: No Status: Acute (3) Diabetes mellitus Current Visit: No Status: Chronic Qualifiers: (4) ESRD (end stage renal disease) on dialysis Current Visit: No Status: Chronic (5) HLD (hyperlipidemia) Current Visit: No Status: Chronic Qualifiers: (6) HTN (hypertension) Current Visit: No Status: Chronic Qualifiers: (7) Seizure Current Visit: No Status: Chronic - Plan Plan: 1. Will need continued KVO fluids and then check labs; heplock IV at that time 2. Check hemoglobin A1c and adjust insulin dosing 3. Patient can be stepped down to the general medical floor. Plan to discharge in: Greater than 2 days - Advance Directives Does patient have a Living Will: No Does patient have a Durable POA for Healthcare: No - Code Status/Comfort Care Code Status Assessed: Yes Code Status: Full Code Critical Care: No Time Spent Managing PTS Care (In Minutes): 25
--- NOTE | 2018-12-26 12:15 | P.PN ---
Subjective Date of Service: 12/26/18 Subjective: Improving Pt admitted to [facility] 2/2 hyperosmolar hyperglycemia mentaly at baseline now BS controlled HD today Physical Examination - Vital Signs Temperature: 97.4 F Blood Pressure: 164/77 Pulse: 76 Respirations: 15 Pulse Ox (%): 96 - Physical Exam General: In no apparent distress, Oriented x3 Neck: Supple, Without JVD or thyroid abnormality Respiratory: Clear to auscultation bilaterally, Normal air movement Cardiovascular: No edema, Normal pulses, Regular rate/rhythm Gastrointestinal: Normal bowel sounds, Soft and benign - Studies Laboratory Data (last 24 hrs) 12/25/18 12:00: Glucose Cancelled 12/25/18 12:00: Creatinine 10.20 H* 12/25/18 12:00: WBC 7.3, Hgb 10.6 L, Hct 32.1 L, Plt Count 230 D 12/25/18 12:00: Sodium 124 L, Potassium 4.0, BUN 90 H D, Creatinine 10.20 H* D, Glucose 812 H*, Total Bilirubin 0.5, AST 16, ALT 28, Alkaline Phosphatase 121 H , Lipase 463 H Medications List Reviewed: Yes Assessment And Plan - Current Problems (Diagnosis) (1) Hyperosmolar (nonketotic) coma Current Visit: Yes Status: Acute - Plan ESRD on HD MWF will do HD today as pt missed yesterday renal dose meds Hyperosmolar coma resolved DM as per PCP Anemia will start on CT HTN controlled Hyponatremia will resolve with HD
[2018-12-26] MEDS: HYDRALAZINE HCL 20 MG/ML VIAL IV PRN (15:55)
[2018-12-26] MEDS ORDERED: GLUCAGON 1 MG/VIAL IM PRN (16:39)
[2018-12-26] MEDS ORDERED: D50W 25 GM/50 ML SYRINGE IV PRN (16:39)
--- NOTE | 2018-12-26 18:01 | P.PN ---
Subjective Date of Service: 12/26/18 Subjective: No C/O voiced, Improving Patient seen and examined at bedside. No family at bedside. Chart reviewed and case discussed with nursing staff and Dr. Richardson Review of Systems 10-point ROS is otherwise unremarkable Physical Examination - Vital Signs Temperature: 97.7 F Blood Pressure: 183/83 Pulse: 85 Respirations: 18 Pulse Ox (%): 94 - Physical Exam General: Alert, In no apparent distress HEENT: Atraumatic, PERRLA, EOMI Neck: Supple, JVD not distended Respiratory: Clear to auscultation bilaterally, Normal air movement Cardiovascular: Regular rate/rhythm, Normal S1 S2 Gastrointestinal: Normal bowel sounds, No tenderness Musculoskeletal: No tenderness Integumentary: No rashes Neurological: Normal speech, Normal tone, Normal affect Lymphatics: No axilla or inguinal lymphadenopathy - Studies Medications List Reviewed: Yes Assessment And Plan - Plan A 63-year-old male with: Acute metabolic encephalopathy, likely due to side effects from dialysis and hypotension, orthostatic. The patient is now back to his baseline. No focal neurological symptoms. Generalized weakness. PT evaluation done. Patient may benefit from a wheelchair. Social work will consulted for wheelchair assistance. End-stage renal disease, on hemodialysis. Dr. Coles has been consulted, recommendations appreciated.. The patient goes to [facility]. Patient status post dialysis today. His next dialysis session will be tomorrow, his regular session. Hyperosmolar nonketotic hyperglycemia. Switched over to subcutaneous insulin. Patient stepped down from the ICU, on the floor. Stable at this time. Will continue to monitor blood sugars. Diabetes mellitus type 2 with hyperglycemic hyperosmolar syndrome, uncontrolled. The patient will need diabetic education. Mixed hyperlipidemia. Continue home medications. Essential hypertension. Resume home medications as appropriate. Right eye blindness. Seizure disorder. We will place on seizure precautions. Deep vein thrombosis prophylaxis with Lovenox renally dosed. Gastroesophageal reflux disease without esophagitis. We will continue PPI. Disposition: Possible discharge tomorrow after dialysis, pending clinical improvements.
[2018-12-26] MEDS: ENOXAPARIN 30 MG/0.3 ML SQ SCH (19:16)
[2018-12-26] MEDS ORDERED: INSULIN -REGULAR HUMAN 50 UNIT/0.5 ML ML SQ SCH ×3 (21:00)
[2018-12-27] MEDS ORDERED: HYDRALAZINE HCL 20 MG/ML VIAL IV PRN (00:17)
[2018-12-27] MEDS: HYDRALAZINE HCL 20 MG/ML VIAL IV PRN ×3 (01:24→16:12)
[2018-12-27] MEDS ORDERED: GLUCAGON 1 MG/VIAL IM PRN ×2 (02:52→17:04)
[2018-12-27] MEDS ORDERED: D50W 25 GM/50 ML SYRINGE IV PRN ×2 (02:52→17:04)
[2018-12-27 04:59] LABS: Absolute Lymphocytes (CBC) 0.6 K/uL (0.7-4.9); Absolute Monocytes 0.5 K/uL (0.1-1.3); Absolute Neutrophil 6.1 K/uL (1.8-8.0); Eosinophils % 3.3 % (0-4.4); Hematocrit 32.3 % (39.6-49.0); Lymphocytes % 7.7 % (15.3-44.8); MPV 7.9 fL (7.6-11.3); Monocytes % 6.4 % (3.3-12.3); RBC Red Blood Cell Count 3.68 M/uL (4.33-5.43)
[2018-12-27] MEDS: INSULIN 70/30 100 UNITS/ML SQ SCH ×2 (08:02→17:19)
[2018-12-27] MEDS: HYDRALAZINE HCL 25 MG TABLET PO SCH ×3 (09:52→19:36)
[2018-12-27] MEDS ORDERED: EPOETIN ALFA 4000 UNIT/1 ML VIAL SQ SCH (10:00)
[2018-12-27] MEDS ORDERED: levETIRAcetam 500 MG TAB PO SCH (11:00)
[2018-12-27 11:08] LABS: Albumin 3.8 g/dL (3.4-5.0); Bilirubin Total 0.5 mg/dL (0.2-1.0); Potassium 4.4 mmol/L (3.5-5.1)
--- NOTE | 2018-12-27 12:12 | P.PN ---
Subjective Date of Service: 12/27/18 Subjective: Improving, Working w/ PT Patient seen and examined at bedside. No family at bedside. Chart reviewed and case discussed with nursing staff and Dr. Richardson Working with physical therapy. Continues to complain of dizziness when standing , feeling weak.. Needs to use wheelchair with physical therapy. Blood pressure and blood sugars continue to fluctuate Review of Systems 10-point ROS is otherwise unremarkable Physical Examination - Vital Signs Temperature: 97.0 F Blood Pressure: 174/83 Pulse: 75 Respirations: 19 Pulse Ox (%): 99 - Physical Exam General: Alert, In no apparent distress, Oriented x3, Cachectic HEENT: Atraumatic, PERRLA, EOMI Neck: Supple, JVD not distended Respiratory: Clear to auscultation bilaterally, Normal air movement Cardiovascular: Regular rate/rhythm, Normal S1 S2 Gastrointestinal: Normal bowel sounds, No tenderness Musculoskeletal: No tenderness Integumentary: No rashes Neurological: Normal speech - Studies Medications List Reviewed: Yes Assessment And Plan - Plan A 63-year-old male with: Acute metabolic encephalopathy, likely due to side effects from dialysis and hypotension, orthostatic. The patient is now back to his baseline. No focal neurological symptoms. Generalized weakness. PT evaluation done. Patient may benefit from a wheelchair. Social work consulted for wheelchair assistance. End-stage renal disease, on hemodialysis. Dr. Coles has been consulted, recommendations appreciated.. The patient goes to [facility]. Patient status post dialysis yesterday. His next dialysis session will be tomorrow, his regular session. Hyperosmolar nonketotic hyperglycemia. Switched over to subcutaneous insulin. Patient stepped down from the ICU, on the floor. Stable at this time. Will continue to monitor blood sugars. Home insulin restarted along with sliding scale insulin Diabetes mellitus type 2 with hyperglycemic hyperosmolar syndrome, uncontrolled. The patient will need diabetic education. Mixed hyperlipidemia. Continue home medications. Essential hypertension. Resume home medications as appropriate. Right eye blindness. Seizure disorder. We will place on seizure precautions. Diarrhea. Stool studies pending, though doubt C. diff as patient with a recent antibiotic usage. Deep vein thrombosis prophylaxis with Lovenox renally dosed. Gastroesophageal reflux disease without esophagitis. We will continue PPI. Disposition: Possible discharge tomorrow, pending clinical improvements.
[2018-12-27] MEDS ORDERED: DRISDOL (VITAMIN D=ERGOCALCIFEROL) 50000 UNIT CAP PO SCH (15:00)
--- NOTE | 2018-12-27 15:08 | PN ---
Date of Progress Note: 12/27/2018 Subjective: The patient was admitted with hyperosmolar/DKA, altered mental status. The patient was dialyzed yesterday. We managed to remove 1.6 L. the patient currently complaining of diarrhea. Tod ay, he has 3 episode, watery. No abdominal pain. No nausea. No vomiting. Physical Examination: Vital Signs: Blood pressure 198/89, pulse of 74. Afebrile. Chest: Clear to auscultation. Heart: S1, S2. Regular. Systolic murmur. Abdomen: Soft, nontender. No guarding or rebound. Extremities: No edema. Laboratory Data: WBC 7.4, H and H 11.3/32.3, platelets 209. Sodium 131, potassium 3.5, bicarb 16, B UN 93, creatinine 10.4, calcium 7.2. Current Medications: The patient on its include, 1.Lovenox. 2.Epogen. 3.Hydralazine 25 t.i.d. 4.Zofran. Assessment And Plan: 1.End-stage renal disease, stable, normal volume. We will arrange for dialysis tomorrow. 2.Hypertension, controlled, not optima. I am going to go ahead and increase his hydralazine and res ume amlodipine. 3.Secondary hyperparathyroid. The patient currently has severe diarrhea. We will hold on the binde r for the time being. 4.Vitamin D deficiency. We will supplement. 5.Diarrhea. We will send for Clostridium difficile. We will follow up. 6.Diabetes as by primary. 7.Acidosis secondary to renal failure. It will be corrected with dialysis. SUZAN/MICHAEL Voice ID: [id number] Report ID: [id number]
[2018-12-27 16:07] VITALS: O2SAT 96
[2018-12-27] MEDS: ENOXAPARIN 30 MG/0.3 ML SQ SCH (16:12)
[2018-12-27] MEDS: INSULIN -REGULAR HUMAN 50 UNIT/0.5 ML ML SQ SCH ×2 (17:19→21:00)
[2018-12-27] MEDS: VALSARTAN 80 MG TAB PO SCH (19:35)
[2018-12-28] MEDS: HYDRALAZINE HCL 20 MG/ML VIAL IV PRN ×2 (01:53→19:06)
[2018-12-28 06:04] LABS: Absolute Lymphocytes (CBC) 1.1 K/uL (0.7-4.9); Absolute Monocytes 0.6 K/uL (0.1-1.3); Absolute Neutrophil 4.2 K/uL (1.8-8.0); Eosinophils % 5.2 % (0-4.4); Hematocrit 29.3 % (39.6-49.0); Lymphocytes % 17.5 % (15.3-44.8); MPV 7.8 fL (7.6-11.3); Monocytes % 9.2 % (3.3-12.3)
[2018-12-28 06:21] VITALS: BMI 22.4
[2018-12-28 06:23] LABS: Albumin 3.4 g/dL (3.4-5.0); Phosphorus 4.9 mg/dL (2.5-4.9)
[2018-12-28] MEDS: INSULIN 70/30 100 UNITS/ML SQ SCH ×2 (07:59→18:20)
[2018-12-28] MEDS: INSULIN -REGULAR HUMAN 50 UNIT/0.5 ML ML SQ SCH ×4 (08:00→21:00)
[2018-12-28] MEDS: HYDRALAZINE HCL 25 MG TABLET PO SCH ×3 (09:00→21:28)
[2018-12-28] MEDS: VALSARTAN 80 MG TAB PO SCH ×2 (09:00→21:28)
[2018-12-28] MEDS: AMLODIPINE 10 MG TAB PO SCH (09:01)
--- NOTE | 2018-12-28 17:03 | P.DS ---
Admission Date: 12/25/18 Discharge Date: 12/28/18 Disposition: DC HOME/HOME HEALTH CARE Discharge Condition: FAIR Reason for Admission: Hyperosmolar hyperketotic hyperglycemia Consultations: Nephrology Brief History of Present Illness: The patient is a 63-year-old male with past medical history of end-stage renal disease, on hemodialysis; diabetes mellitus type 2; hypertension; hyperlipidemia ; seizure disorder; right eye blindness, who was in his usual state of health until day of admission when he was at his dialysis appointment and felt very weak. States that he was unable to walk, but for the past few days. The patient was found to be somewhat confused and have facial asymmetry; therefore, he was sent to the ER for further evaluation. In the ER, his lab work showed a glucose level of 812, anion gap was elevated at 20, acetone level was negative, white count was normal. The patient's symptoms were constant, moderate, progressively worsening. There was no facial asymmetry found when he was in the ER. His head CT scan was also negative. When seen in the ER he was awake, alert, oriented x3, in some mild distress. He was given 1 L bolus in the ER and started on insulin drip. Hospital Course: Patient was admitted for generalized weakness, acute metabolic encephalopathy and hyperosmolar non ketotic hyperglycemia. He was started on insulin drip and was going to be transferred to the ICU. However, while in the ER, after receiving inuslin, his blood sugars improved and his mentation returned to baseline therefore he was admitted to the floor. His blood sugargs were monitored. they did fluctuate drastically, all the way from 50's - 400's. Prior to discharge though, his blood sugars were stabilized, in the high 150's. Unfortunately, patient did not know what insulin he was on and his son could not bring the medications to the hospital. He was started on sub cut 70/30 here in the hospital along with sliding scale insulin. He was counseled on medication compliance when he leaves from here. He will continue with his home insulin medications. For his ESRD, on HD, nephrology was consulted and he received dialysis per his regular schedule. He was also noted to have uncontrolled, fluctuating blood pressures. Unfortunately, lois, we did not have a list of his medications from home. Though his blood pressure was slightly better controlled with hydralazine PO TID, diovan, amlodipine. Nephrology will continue to adjust blood pressure medications as an outpatient. He otherwise remained stable throughout the stay. He did complain of some dizziness that has been there chronically, especially while working with PT. Patient was requesting a wheelchair. SW was consulted, but per SW she is not sure if they will be able to get wheelchair but SW will let company know patient is looking for this. Prior to discharge, he was AAOx3, in no acute distress, working well with PT. His diagnosis and treatment plan were discussed with patient using translation services. All questions were answered and he verbalized understanding. He was then discharged [facility] a safe and stable manner. He will follow up with his PCP in 2-3 days. He will follow up with nephrology in 2 weeks. Vital Signs/Physical Exam: Temp Pulse Resp BP Pulse Ox 97.0 F 72 15 207/82 H 96 12/28/18 12:00 12/28/18 16:00 12/28/18 12:00 12/28/18 12:00 12/28/18 12:00 General: Alert, In no apparent distress, Oriented x3 HEENT: Atraumatic, PERRLA, EOMI Neck: Supple, JVD not distended Respiratory: Clear to auscultation bilaterally, Normal air movement Cardiovascular: Regular rate/rhythm, Normal S1 S2 Gastrointestinal: Normal bowel sounds, No tenderness Musculoskeletal: No tenderness Integumentary: No rashes Neurological: Normal speech, Normal tone, Normal affect Lymphatics: No axilla or inguinal lymphadenopathy Laboratory Data at Discharge: WBC 6.3 K/uL (4.3-10.9) D 12/28/18 05:20 Hgb 10.0 g/dL (13.6-17.9) L 12/28/18 05:20 Hct 29.3 % (39.6-49.0) L 12/28/18 05:20 Plt Count 189 K/uL (152-406) 12/28/18 05:20 Sodium 136 mmol/L (136-145) 12/28/18 05:20 Potassium 5.0 mmol/L (3.5-5.1) 12/28/18 05:20 BUN 85 mg/dL (7-18) H 12/28/18 05:20 Creatinine 9.96 mg/dL (0.55-1.3) H* D 12/28/18 05:20 Glucose 232 mg/dL (74-106) H 12/28/18 05:20 Phosphorus 4.9 mg/dL (2.5-4.9) 12/28/18 05:20 Total Bilirubin 0.5 mg/dL (0.2-1.0) 12/27/18 10:14 AST 55 U/L (15-37) H 12/27/18 10:14 ALT 38 U/L (12-78) 12/27/18 10:14 Alkaline Phosphatase 103 U/L (45-117) 12/27/18 10:14 Lipase 463 U/L (73-393) H 12/25/18 12:00 Home Medications: Acetaminophen [Acetaminophen Extra Strength] 500 mg PO Q4HP PRN 11/04/18 Acetaminophen with Codeine [Tylenol with-Codeine #3 Tablet] 1 each PO Q6HR PRN 11/04/18 Amlodipine [Norvasc*] 10 mg PO DAILY 11/04/18 Aspirin Chewable [Aspirin Chewable*] 81 mg PO DAILY 11/04/18 Atorvastatin Calcium [Lipitor] 40 mg PO BEDTIME 11/04/18 B Complx/C/Folic/Zinc/Copper/E [Eql Stress B-Complex Tablet] 1 each PO DAILY Calcium Acetate [Phoslo*] 2 cap PO TIDWM 11/04/18 Ergocalciferol (Vitamin D2) [Vitamin D2] 50,000 unit PO DIRECTED 11/04/18 Gabapentin [Neurontin*] 100 mg PO DAILY 11/04/18 Insulin Detemir [Levemir] 7 units SQ BID 11/04/18 Levetiracetam [Keppra] 500 mg PO SEECOM 11/04/18 Levetiracetam [Keppra] 500 mg PO SEECOM 11/04/18 Pantoprazole [Protonix Tab*] 40 mg PO DAILY 11/04/18 Valsartan [Diovan*] 160 mg PO BID 11/04/18 Atorvastatin Calcium 40 mg PO 12/25/18 Calcium Acetate [Phoslo] 667 mg PO 12/25/18 Calcium Carbonate [Tums] 200 mg PO 12/25/18 Gabapentin 100 mg PO 12/25/18 Insulin Lispro [Humalog] unit SQ 12/25/18 Pantoprazole [Protonix Tab] 40 mg PO 12/25/18 Hydralazine [Apresoline*] 50 mg PO TID #60 tab 12/28/18 New Medications: Hydralazine [Apresoline*] 50 mg PO TID #60 tab Patient Discharge Instructions: Please follow up with your primary care physician in 2-3 days. Please follow up with Dr. Davies in 2 weeks. Please return to the Emergency room with worsening symtpoms. Diet: Renal Activity: Fall precautions Followup: Servando Davies MD [ACTIVE - CAN ADMIT] - Time spent managing pt's care (in minutes): 55
--- NOTE | 2018-12-28 18:04 | PN ---
Date of Progress Note: 12/28/2018 Subjective: The patient was admitted with elevation in blood sugar. The patient had diarrhea, feeli ng slightly better today. Diarrhea subsided. Physical Examination: Vital Signs: Blood pressure of 187/90, pulse of 71. Chest: Clear to auscultation. Heart: S1, S2. Systolic murmur. Abdomen: Soft, nontender. Extremities: No edema. Laboratory Data: H and H 06/05.3. Sodium 136, potassium 5, bicarb 20, BUN 85, creatinine 9.9, calci um 7.1, phos 4.9. Current Medications: The patient on include; Lovenox, Epogen, amlodipine 10, hydralazine p.r.n., hyd ralazine 25 t.i.d., valsartan, Keppra. Assessment And Plan: 1.End-stage renal disease. We will continue the patient on dialysis. We will challenge the patient today. 2.Hypertension, not controlled. I am going to go ahead and increase hydralazine to 50 mg 3 times a day. We will follow up blood pressure after dialysis. 3.Diarrhea. Follow up with primary. 4.Diabetic ketoacidosis, has been resolved. MERLENE Voice ID: [id number] Report ID: [id number]
[2018-12-28] MEDS: ENOXAPARIN 30 MG/0.3 ML SQ SCH (19:06)
[2018-12-28 19:59] LABS: HBsAG Nonreactive (Nonreactive)
[2018-12-28] MEDS ORDERED: DOXAZOSIN 2 MG TAB PO ONE (23:58)
[2018-12-29 06:41] LABS: Albumin 3.2 g/dL (3.4-5.0); Phosphorus 4.5 mg/dL (2.5-4.9); Potassium 4.5 mmol/L (3.5-5.1)
[2018-12-29] MEDS: INSULIN -REGULAR HUMAN 50 UNIT/0.5 ML ML SQ SCH (07:30)
[2018-12-29 08:18] VITALS: BP 157/85; TEMP 97
[2018-12-29] MEDS: AMLODIPINE 10 MG TAB PO SCH (09:24)
[2018-12-29] MEDS: INSULIN 70/30 100 UNITS/ML SQ SCH (09:25)
[2018-12-29] MEDS: HYDRALAZINE HCL 25 MG TABLET PO SCH (09:25)
[2018-12-29] MEDS: VALSARTAN 80 MG TAB PO SCH (09:25)
--- NOTE | 2018-12-29 12:13 | P.PN ---
Date of Service: 12/29/18 Patient was admitted for generalized weakness, acute metabolic encephalopathy and hyperosmolar non ketotic hyperglycemia. He was started on insulin drip and was going to be transferred to the ICU. However, while in the ER, after receiving inuslin, his blood sugars improved and his mentation returned to baseline therefore he was admitted to the floor. His blood sugargs were monitored. they did fluctuate drastically, all the way from 50's - 400's. Prior to discharge though, his blood sugars were stabilized, in the high 150's. Unfortunately, patient did not know what insulin he was on and his son could not bring the medications to the hospital. He was started on sub cut 70/30 here in the hospital along with sliding scale insulin. He was counseled on medication compliance when he leaves from here. He will continue with his home insulin medications. For his ESRD, on HD, nephrology was consulted and he received dialysis per his regular schedule. He was also noted to have uncontrolled, fluctuating blood pressures. Unfortunately, agian, we did not have a list of his medications from home. Though his blood pressure was slightly better controlled with hydralazine PO TID, diovan, amlodipine. Nephrology will continue to adjust blood pressure medications as an outpatient. He otherwise remained stable throughout the stay. He did complain of some dizziness that has been there chronically, especially while working with PT. Patient was requesting a wheelchair. SW was consulted, but per SW she is not sure if they will be able to get wheelchair but SW will let company know patient is looking for this. Prior to discharge, he was AAOx3, in no acute distress, working well with PT. His diagnosis and treatment plan were discussed with patient using translation services. All questions were answered and he verbalized understanding. He was then discharged home in a safe and stable manner. He will follow up with his PCP in 2-3 days. He will follow up with nephrology in 2 weeks. Discharge was held from yesterday as patient had no ride. It seems that there is some trouble getting a hold of the son, will suddenly ended up in [place]. It seemed that patient's [id number] will be picking up patient today. He remained stable overnight otherwise. Physical Exam: General: Alert, In no apparent distress, Oriented x3 HEENT: Atraumatic, PERRLA, EOMI Neck: Supple, JVD not distended Respiratory: Clear to auscultation bilaterally, Normal air movement Cardiovascular: Regular rate/rhythm, Normal S1 S2 Gastrointestinal: Normal bowel sounds, No tenderness Musculoskeletal: No tenderness Integumentary: No rashes Neurological: Normal speech, Normal tone, Normal affect Lymphatics: No axilla or inguinal lymphadenopathy
[2018-12-29] MEDS ORDERED: DOXAZOSIN 2 MG TAB PO SCH ×2 (21:00)
== END 2018-12-29 11:15 | disposition home health service (06) | DRG 637 ==
LOC: ER 11:46 → ERHOLD 14:17 → 4TH 23:29
PROVIDERS: ADMIT Family Medicine; ATTEND Family Medicine
PROC: 5A1D70Z Performance of Urinary Filtration, Intermittent, Less than 6 Hours Per Day (ICD-10-PCS; principal; 2018-12-26)
DX: E11.00 Type 2 diabetes mellitus with hyperosmolarity without nonketotic hyperglycemic-hyperosmolar coma (NKHHC) (principal); G93.41 Metabolic encephalopathy; N18.6 End stage renal disease; I12.0 Hypertensive chronic kidney disease with stage 5 chronic kidney disease or end stage renal disease; E87.1 Hypo-osmolality and hyponatremia; T50.3X5A Adverse effect of electrolytic, caloric and water-balance agents, initial encounter; I95.1 Orthostatic hypotension; R53.1 Weakness; E11.22 Type 2 diabetes mellitus with diabetic chronic kidney disease; Z99.2 Dependence on renal dialysis; E78.2 Mixed hyperlipidemia; D63.1 Anemia in chronic kidney disease; G40.909 Epilepsy, unspecified, not intractable, without status epilepticus; K21.9 Gastro-esophageal reflux disease without esophagitis; H54.7 Unspecified visual loss; R19.7 Diarrhea, unspecified; E55.9 Vitamin D deficiency, unspecified; E21.3 Hyperparathyroidism, unspecified
CPT/HCPCS: 36415; 70450; 80048; 80053; 80069; 80076; 82010; 82805; 82947; 82962; 83036; 83690; 83930; 85025; 86704; 86706; 86803; 87340; 90935; 96365; 96367; 96374; 97116; 97163; 97530; 97542; 99285; J0360; J1610; J1644; J1650; J2405; J7030